=== PATIENT | male | born 1960 | race Caucasian/White ===

== ENCOUNTER → 2017-07-22 | Outpatient (CLI) | payer OTHER ==
--- NOTE | 2017-07-22 10:20 | DIAGNOSTIC IMAGING REPORT ---
(BARIUM SWALLOW) ESOPHAGUS CLINICAL HISTORY: CHRONIC COUGH COMPARISON STUDY: None FLUOROSCOPY TIME: 1.2 minutes. NUMBER OF FLUOROSCOPIC IMAGES: 19 FINDINGS: The patient swallowed effervescent granules and barium without difficulty. Swallowing the AP and lateral projections reveal no evidence of aspiration. No esophageal masses or ulcerations are visualized. There is a tiny hiatal hernia. There is disordered esophageal motility. No reflux was demonstrated. IMPRESSION: 1. No esophageal masses identified 2. Disordered esophageal motility 3. No reflux was demonstrated Electronically signed by: Jose Rubin M.D. 07/22/2017 10:19 AM Dictated Date/Time: 07/22/2017 10:18 AM
== END | disposition home or self-care (01) ==
LOC: C.RAD 09:26
PROVIDERS: ATTEND Internal Medicine
DX: R05 Cough (principal); K22.4 Dyskinesia of esophagus

== ENCOUNTER 2023-06-12 10:52 | Inpatient (IN) ==
--- OUTSIDE RECORDS SUMMARY | 2023-06-12 11:13 | External Medical Summary | Summary of Care ---
Author Name Unknown Organization [facility] Address [address] [place] [address] Phone [phone] Care Team Providers Care Senior Manager Quality Assurance Name Role Phone Gerry Noonan PA-C Primary Care Provider [phone]- [phone] Reason for Visit * Reason Comments eRx-Medication Refill Encounter Details Date Type Department Care Team (Late st Contact Info) Description 04/25/2023 Refill General Internal Medicine [facility] [address] [facility] [place] [address] Gerry Noonan PA-C [facility] [place] [address] Encounter for long-term (current) use of medications*; Type 2 diabetes mellitus with hemoglobin A1c goal of less than 7.0% ([facility]); PURE HYPERCHOLESTEROLEM Allergies Active Allergy Reactions Criticality Noted Date Comments Erythromycin 12/01/1999 throat swelling documented as of this encounter (statuses as of 04/30/2023) Medications Medication Sig Dispensed Refills Start Date End Date Status Respiratory Therapy Supplies (NEBULIZER/TUBING /MOUTHPIECE) KITIndications:Mi ld persistent asthma with acute exacerbation Take Duoneb four times a day as needed for SOB. Dx: J 45.3. 2 Kit 5 8 Active OPKO HealthTouch Ultra System w/Device KitIndications:Ty pe 2 diabetes mellitus with hemoglobin A1c goal of less than 8.0% ([facility]) check fastig glucose daily Dx: 250.00 1 Kit 0 1 Active Nebulizer CompressorIndicat ions:Mild persistent asthma with acute exacerbation Take Duoneb four times a day as needed for SOB.Dx: J 45.3. 1 Each 1 1 Active Bacitracin 500 UNIT/GM External Ointment Apply topically to affected area 3 times a day . Apply to outside of nose three times per day 15 g 1 2 Active Gabapentin 100 MG Oral Capsule (Neurontin)Indica tions:Lumbar degenerative disc disease Take 1 Capsule (100 mg) by mouth in the morning and 1 Capsule (100 mg) at noon and 1 Capsule (100 mg) before bedtime. 180 Capsule 5 2 Active metFORMIN HCl 1000 MG Oral Tablet (Glucophage)Indic ations:Type 2 diabetes mellitus with hemoglobin A1c goal of less than 7.0% ([facility]) take 1 tablet by mouth twice a day (WITH MORNING AND EVENING MEAL) 180 Tablet 3 2 Active Betamethasone Dipropionate 0.05 % External Cream (Diprosone)Indica tions:Psoriasis Apply to arms and legs twice daily as needed for flares 45 g 5 2 Active Betamethasone Valerate 0.1 % External LotionIndications :Psoriasis Apply to arms and legs twice daily 60 mL 5 2 Active Fluocinonide 0.05 % External SolutionIndicatio ns:Psoriasis Apply to scalp nightly as needed for flares 60 mL 0 2 Active Saline Nasal Foxworth 0.65 % Nasal Solution (Rainelle) Administer 2 Sprays into nostril every 2 hours while awake. 30 mL 12 2 Active Losartan Potassium 100 MG Oral Tablet (Cozaar)Indicatio ns:HTN, goal below 130/80 Take 1 Tablet (100 mg) by mouth in the morning. 90 Tablet 3 2 Active Albuterol Sulfate HFA 108 (90 Base) MCG/ACT Inhalation Aerosol SolutionIndicatio ns:Mild persistent asthma without complication Inhale 2 Puffs by mouth every 4 hours as needed for Cough, Shortness of Breath or Wheezing (and prior exertion). 18 g 3 2 Active Albuterol Sulfate (2.5 MG/3ML) 0.083% Inhalation Nebulization Solution (Proventil) Inhale 1 Vial (2.5 mg) via nebulizer every 4 hours as needed for Wheezing or Shortness of Breath (and with respiratory infections). 90 mL 1 2 Active OneTouch Ultra Blue In Vitro Strip (Glucose Blood)Indications :Type 2 diabetes mellitus with hemoglobin A1c goal of less than 7.0% (HCC) check fastig glucose daily Dx: 250.00 100 Strip 0 2 Active OneTouch UltraSoft LancetsIndication s:Type 2 diabetes mellitus with hemoglobin A1c goal of less than 7.0% (HCC) check fasting glucose daily Dx: 250.00 100 Each 3 2 Active Fluticasone-Salme terol 500-50 MCG/ACT Inhalation Aerosol Powder Breath Activated (Advair Diskus) Inhale 1 Puff by mouth in the morning and 1 Puff before bedtime. 60 Each 6 2 Active Fluticasone Propionate 50 MCG/ACT Nasal Suspension Administer 1 Foxworth into nostril in the morning. 0 Active Triamcinolone Acetonide 0.1 % External Cream (Aristocort)Indic ations:Psoriasis APPLY TOPICALLY TO AFFECTED AREA 2 TIMES A DAY 454 g 0 3 Active Montelukast Sodium 10 MG Oral Tablet (Singulair)Indica tions:Mild persistent asthma without complication TAKE 1 TABLET BY MOUTH EVERY EVENING 90 Tablet 0 3 Active Omeprazole 20 MG Oral Capsule Delayed Release (PriLOSEC)Indicat ions:Gastroesopha geal reflux disease without esophagitis TAKE ONE CAPSULE BY MOUTH IN THE MORNING 90 Capsule 0 3 Active amLODIPine Besylate 5 MG Oral Tablet (Norvasc)Indicati ons:HTN, goal below 130/80 TAKE ONE TABLET BY MOUTH IN THE MORNING 90 Tablet 0 3 Active Jardiance 10 MG Oral Tablet (Empagliflozin)In dications:Type 2 diabetes mellitus with hemoglobin A1c goal of less than 7.0% (HCC) TAKE ONE TABLET BY MOUTH IN THE MORNING 30 Tablet 0 4 Active Atorvastatin Calcium 10 MG Oral Tablet (Lipitor)Indicati ons:Type 2 diabetes mellitus with hemoglobin A1c goal of less than 7.0% (HCC),Dyslipidemi a, goal LDL below 160 TAKE ONE TABLET BY MOUTH IN THE MORNING 30 Tablet 0 4 Active Empagliflozin 10 MG Oral Tablet (Jardiance)Indica tions:Type 2 diabetes mellitus with hemoglobin A1c goal of less than 7.0% (HCC) Take 1 Tablet (10 mg) by mouth in the morning. 30 Tablet 11 2 04/27/19 24 Discontinued Atorvastatin Calcium 10 MG Oral Tablet (Lipitor)Indicati ons:Type 2 diabetes mellitus with hemoglobin A1c goal of less than 7.0% (HCC),Dyslipidemi a, goal LDL below 160 Take 1 Tablet (10 mg) by mouth in the morning. 90 Tablet 3 2 04/27/19 24 Discontinued documented as of this encounter (statuses as of 04/30/2023) Active Problems Problem Noted Date Diagnosed Date Thoracic aortic aneurysm without rupture 022 Psoriasis 03/24/2021 Diabetic sensorimotor polyneuropathy 10/17/2019 Gastroesophageal reflux disease without esophagi tis 06/16/2018 Mixed rhinitis 04/26/2018 Deviated nasal septum 04/26/2018 Mild persistent asthma without complication 10/03 Pulmonary nodule 10/12/2017 Type 2 diabetes mellitus wit h hemoglobin A1c goal of less than 7.0% 08/01/2012 Overview: ICD-10 update of inactive term HTN, goal below 130/80 07/20/2012 BMI 35-39 ISOLATED (SEE ACTUAL BMI) 09/16/2009 Overview: Per Obesity Protocol, #19 PURE HYPERCHOLESTEROLEM Overview: Per Lipid Taxonomy. Smokeless tobacco use Hemorrhoids documented as of this encounter (statuses as of 04/30/2023) Resolved Problems Problem Noted Date Diagnosed Date Resolved Date Enlarged thoracic aorta 09/27/201810/03 Gastroesophageal reflux dise ase with esophagitis 04/26/2018 02/07/2019 Hoarseness 04/26/2018 03/24/2021 Dyslipidemia, goal LDL below 160 05/12/2011 08/17/2017 Dyslipidemia, goal to be determined 03/14/2009 07/20/2012 Overview: Per Lipid Taxonomy. GENERAL OSTEOARTHROSIS 12/28/200207/20 BENIGN HYPERTENSION 07/21/19 13 documented as of this encounter (statuses as of 04/30/2023) Immunizations Name Administration Dates Next Due Pneumococcal Conjugate Vacci ne, 20-valent ([id number]) 12/15/2021 Pneumococcal Polysaccharide PPV23 (Pneumovax) 11/21/2012 Seasonal Influenza, PF, 6 M & above, IM , (FluLaval or Fluzone) 12/15/2021,03/24/2021 Seasonal Influenza, Split, I IV3, With Preserve, Inj 03/21/2013,02/17/2011,01/17/2009 TD - Tetanus/Diptheria (ADULT) 02/18/2012,1994 TDAP (age 11 and older)(Adacel) 12/28/2002 documented as of this encounter Social History Tobacco Use Types Packs/Day Years Used Date Smoking Tobacco: Never Smokeless Tobacco: Current Snuff Comments:snuff since teenage years/ no passive smoke exposures Alcohol Use Standard Drinks/Week Comments Yes 11.7 (1 standard drink = 0.6 oz pure alcohol) occ PHQ-2 Answer Date Recorded PHQ Adult Total Score 0 12/15/2021 Hunger Vital Sign Answer Date Recorded Worried About Running Out of Food in the Last Ye ar Never true 02/07/2019 Ran Out of Food in the Last Year Never true 02/07/2019 Sex and Gender Information Value Date Recorded Sex Assigned at Not on file Gender Identity Not on file Sexual Orientation Not on file Job Start Date Occupation Industry Not on file Not on file Not on file documented as of this encounter Miscellaneous Notes * Telephone Encounter - Myriam Garcia OSA - 04/30/2023 10:38 AM EST Lmom 04/30 2nd attempt * Telephone Encounter - Myriam Garcia OSA - 04/28/2023 8:32 AM EST MyG sent 04/28 * Telephone Encounter - Radha Cerda MD - 04/27/2023 3:18 PM EST Please call the patient, he will need to schedule an appointment for additional refills. * Telephone Encounter - Radha Cerda MD - 04/27/2023 3:18 PM ESTSigned Prescriptions: Disp Refills Jardiance 10 MG Oral Tablet (Empagliflozin)30 Tab*0 Sig: TAKE ONE TABLET BY MOUTH IN THE MORNING Authorizing Provider: RADHA CERDA Atorvastatin Calcium 10 MG Oral Tablet (Li*30 Tab*0 Sig: TAKE ONE TABLET BY MOUTH IN THE MORNING Authorizing Provider: RADHA CERDA * Telephone Encounter - Gerry Noonan PA-C - 04/27/2023 1:35 PM ESTPending Prescriptions: Disp Refills Jardiance 10 MG Oral Tablet (Empagliflozin)30 Tab*0 Sig: TAKE ONE TABLET BY MOUTH IN THE MORNING Atorvastatin Calcium 10 MG Oral Tablet (Li*30 Tab*0 Sig: TAKE ONE TABLET BY MOUTH IN THE MORNING * Telephone Encounter - Lilly Marquez PHARM Tech - 04/27/2023 1:27 PM ESTPending Prescriptions: Disp Refills Jardiance 10 MG Oral Tablet (Empagliflozin)30 Tab*0 Sig: TAKE ONE TABLET BY MOUTH IN THE MORNING Atorvastatin Calcium 10 MG Oral Tablet (Li*30 Tab*0 Sig: TAKE ONE TABLET BY MOUTH IN THE MORNING * Telephone Encounter - Lilly Marquez PHARM Tech - 04/27/2023 1:27 PM EST Received message from [facility] regarding patient needing appointment and labs. Placed call to patient toadvise. Left message on voicemail advising of required labs and to call back for an appointment. Thank you, Lilly Marquez, [facility] Food Safety Manager II [facility] ([facility] (formerly [facility]pharm[facility]) 04/27/2023,1:27 PM * Telephone Encounter - Fiorella Moore [facility] - 04/27/2023 7:27 AM ESTPending Prescriptions: Disp Refills Jardiance 10 MG Oral Tablet (Empagliflozin)30 Tab*0 Sig: TAKE ONE TABLET BY MOUTH IN THE MORNING Atorvastatin Calcium 10 MG Oral Tablet (Li*30 Tab*0 Sig: TAKE ONE TABLET BY MOUTH IN THE MORNING * Telephone Encounter - Fiorella Moore [facility] - 04/27/2023 7:24 AM EST Unable to authorize medication refills for pended medication(s) at this time. Part of the protocol criteria used for refill authorization was not satisfied. Per refill protocol patient should have routine exam and labs on file within past year. Reviewed AMP report, Care Gaps/Health Maintenance, medications list, and for any routine labs typically orderedfor this patient. Lab orders placed. Please contact patient to schedule office visit with PRIMARY CARE and advise of labs ordered for blood draw AND URINE specimen (patient will have to be able to void to provide sample).. Recommend patient to fast if able for labs. Patient may still have water and regular medications. Advise to obtain labs before his scheduled office visit Visit date not found. Last Visit: 12/15/2021 (in office), Visit date not found (telemedicine) Next Visit: Visit date not found After contacting patient, please forward request to Gerry Noonan PA-C. Thank You, Fiorella Moore [facility] Clinical Pharmacist [facility] ([facility]) (formerly Telepharmacy) [phone] 04/27/2023, 7:26 AM documented in this encounter Plan of Treatment Upcoming Encounters Date Type Department Care Team (Late st Contact Info) Description 09/09/2023 4:00 PM EDT Telemedicine Allergy/Immunology [facility] [place] [address] [facility] [place] [address] Marisela Sebastian PA-C [address] [facility] [place] [address] Scheduled Orders Name Type Priority Associated Diagnoses Orde r Schedule ALBUMIN / CREATININE RATIO, URINE Lab Routine Encounter for long-term (current) use of medications Expected: 04/27/2023 (Approximate), Expires: 04/27/2024 Scheduled Procedures Name Priority Associated Diagnoses Date/Ti me COLONOSCOPY FLEXIBLE PROXIMAL DIAGNOSTIC Recall History of colon polyps Health Maintenance Due Date Last Done Comments COVID-19 Vaccine (#1) 1961 HIV Screening 1976 Hepatitis C Screening 1979 Zoster Vaccines (1 of 2) 2011 Diabetic Eye Exam 10/04/2019 10/03/2018, , 01/07/2015, Additional history exists Hepatitis B (1 of 3 - Risk 3-dose series) 2021 DTaP,Tdap,and Td Vaccines (3 - Td or Tdap) 02/17/2022 02/18/2012, 12/28/2002, 04/05/1994 B-12 04/28/2022 04/28/2021, 03/12/2019 HbA1c 06/01/2022 11/29/2021, 0604/2021, 04/28/2021, Additional history exists GFR 06/02/2022 06/02/2021, 04/06, 07/05/2020, Additional history exists COLONOSCOPY-EVERY 5 YRS AGES 18-100 08/27/2022 08/27/2017, 08/27/2017, 08/08/2012, Additional history exists Albumin/Creatinine Ratio 11/29/2022 022, 07/05/2020, 03/07/2019, Additional history exists Influenza Vaccine (FLU shot) (#1) 2022 12/15/2021, 03/24/2021, 03/21/2013, Additional history exists Depression Screening 12/15/2022 12/15/2021 Diabetic Foot Exam 12/15/2022 12/15/2021, 0 11/19/2020, 10/17/2019, Additional history exists Lipid Panel 04/28/2026 04/28/2021, 0405/2020, 03/07/2019, Additional history exists Pneumococcal Vaccine: Pediatrics (0 to 5 Years) and At-Risk Patients (6 to 64 Years) Completed 12/15/2021, 11/21/2012 GARDASIL-HPV IMMUNIZATION SERIES Aged Out No longer eligible based on patient's age to complete this topic MENINGOCOCCAL (MENACTRA/MENVEO) Aged Out No longer eligible based on patient's age to complete this topic documented as of this encounter Medical Devices Not on filedocumented as of this encounter Visit Diagnoses Diagnosis Encounter for long-term (current) use of medications- Primary Encounter for long-term (current) use of other medications Type 2 diabetes mellitus with hemoglobin A1c goal of less than 7.0% (HCC) PURE HYPERCHOLESTEROLEM Other and unspecified hyperlipidemia documented in this encounter Care Teams Senior Manager Quality Assurance Relationship Specialty Start Date End Date Gerry Noonan PA-C [address] [place], [place] [address]i [place] [address] PCP - General Physician Supervisor [employer] 10/28/21 documented as of this encounter
--- OUTSIDE RECORDS SUMMARY | 2023-06-12 11:13 | External Medical Summary | Summary of Care ---
Author Name Unknown Organization [facility] Address [address] [place] [address] Phone [phone] Care Team Providers Care Mold Loft Worker Name Role Phone Parker Rubio MD Primary Care Provider [phone] Reason for Visit * Reason Comments eRx-Medication Refill Encounter Details Date Type Department Care Team (Late st Contact Info) Description 05/23/2023 Refill General Internal Medicine [facility] [address] [facility] [place] [address] Klarissa Cerda MD [address] [place] [address] Type 2 diabetes mellitus with hemoglobin A1c goal of less than 7.0% ([facility]); PURE HYPERCHOLESTEROLEM Allergies Active Allergy Reactions Criticality Noted Date Comments Erythromycin 12/01/1999 throat swelling documented as of this encounter (statuses as of 05/31/2023) Medications Medication Sig Dispensed Refills Start Date End Date Status Respiratory Therapy Supplies (NEBULIZER/TUBING /MOUTHPIECE) KITIndications:Mi ld persistent asthma with acute exacerbation Take Duoneb four times a day as needed for SOB. Dx: J 45.3. 2 Kit 5 8 Active [employer] co. System w/Device KitIndications:Ty pe 2 diabetes mellitus with hemoglobin A1c goal of less than 8.0% ([facility]) check fastig glucose daily Dx: 250.00 1 [...] hemoglobin A1c goal of less than 7.0% ([facility]) take 1 tablet by mouth twice a [...] 60 mL 0 2 Active Saline Nasal [place] 0.65 % Nasal Solution ([place]) Administer 2 Sprays into nostril every 2 [...] Propionate 50 MCG/ACT Nasal Suspension Administer 1 [place] into nostril in the morning. 0 Active [...] THE MORNING 30 Tablet 0 4 Active Jardiance 10 MG Oral Tablet (Empagliflozin)In dications:Type 2 diabetes mellitus with hemoglobin A1c goal of less than 7.0% (HCC) TAKE ONE TABLET BY MOUTH IN THE MORNING 30 Tablet 0 4 05/24/19 24 Discontinued Atorvastatin Calcium 10 MG Oral Tablet (Lipitor)Indicati ons:Type 2 diabetes mellitus with hemoglobin A1c goal of less than 7.0% (HCC),Dyslipidemi a, goal LDL below 160 TAKE ONE TABLET BY MOUTH IN THE MORNING 30 Tablet 0 4 05/24/19 24 Discontinued documented as of this encounter (statuses as of 05/31/2023) Active Problems Problem Noted Date Diagnosed Date [...] as of this encounter (statuses as of 05/31/2023) Resolved Problems Problem Noted Date Diagnosed Date Resolved Date Enlarged thoracic aorta 09/27/201810/03 Gastroesophageal reflux dise ase with esophagitis 04/26/2018 02/07/2019 Hoarseness 04/26/2018 03/24/2021 Dyslipidemia, goal LDL below 160 05/12/2011 08/17/2017 Dyslipidemia, goal to be determined 03/14/2009 07/20/2012 Overview: Per Lipid Taxonomy. GENERAL OSTEOARTHROSIS 12/28/200207/20 BENIGN HYPERTENSION 07/21/19 13 documented as of this encounter (statuses as of 05/31/2023) Immunizations Name Administration Dates Next Due Pneumococcal Conjugate Vacci ne, 20-valent ([id number]) 12/15/2021 Pneumococcal Polysaccharide PPV23 (Pneumovax) 11/21/2012 Seasonal [...] encounter Miscellaneous Notes * Telephone Encounter - Ernie Stewart OSA - 05/31/2023 10:32 AM EST Pt scheduled with new provider Dr. Rubio * Telephone Encounter - Ernie Stewart OSA - 05/26/2023 11:48 AM EST MyG sent 05/26 * Telephone Encounter - Klarissa Cerda MD - 05/24/2023 1:01 PM EST Please call the patient, he will need to schedule an appointment for additional refills. * Telephone Encounter - Klarissa Cerda MD - 05/24/2023 1:01 PM ESTSigned Prescriptions: Disp Refills Jardiance 10 MG Oral Tablet (Empagliflozin)30 Tab*0 Sig: TAKE ONE TABLET BY MOUTH IN THE MORNING Authorizing Provider: KLARISSA CERDA Atorvastatin Calcium 10 MG Oral Tablet (Li*30 Tab*0 Sig: TAKE ONE TABLET BY MOUTH IN THE MORNING Authorizing Provider: KLARISSA CERDA * Telephone Encounter - Gerry Noonan PA-C - 05/24/2023 12:55 PM ESTPending Prescriptions: Disp Refills Jardiance 10 MG Oral Tablet [Pharmacy Med *30 Tab*0 Sig: TAKE ONE TABLET BY MOUTH IN THE MORNING Atorvastatin Calcium 10 MG Oral Tablet [Ph*30 Tab*0 Sig: TAKE ONE TABLET BY MOUTH IN THE MORNING * Telephone Encounter - Lilly Marquez oracle consultant - 05/24/2023 12:47 PM EST Pending Prescriptions: Disp Refills Jardiance 10 MG Oral Tablet [Pharmacy Med *30 Tab*0 Sig: TAKE ONE TABLET BY MOUTH IN THE MORNING Atorvastatin Calcium 10 MG Oral Tablet [Ph*30 Tab*0 Sig: TAKE ONE TABLET BY MOUTH IN THE MORNING * Telephone Encounter - Lilly Marquez PHARM Tech - 05/24/2023 12:47 PM EST Received message from [facility] regarding patient needing appointment and labs. Placed call to patient guerita. Left message on voicemail advising of required labs and to call back for an appointment. Thank you, Lilly Marquez [facility] Coremaker Supervisor II [facility] ([facility]) (formerly Telepharmacy) 05/24/2023,12:47 PM * Telephone Encounter - Maryuri Allen [facility] - 05/24/2023 10:02 AM EST Pending Prescriptions: Disp Refills Jardiance 10 MG Oral Tablet [Pharmacy Med *30 Tab*0 Sig: TAKE ONE TABLET BY MOUTH IN THE MORNING Atorvastatin Calcium 10 MG Oral Tablet [Ph*30 Tab*0 Sig: TAKE ONE TABLET BY MOUTH IN THE MORNING * Telephone Encounter - Maryuri Allen [facility] - 05/24/2023 10:01 AM EST Did you pend patient's preferred pharmacy and medication before forwarding?yes Pharmacy[id number] [address] Pending Prescriptions: Disp Refills Jardiance 10 MG Oral Tablet (Empagliflozi*30 Tab*0 Sig: TAKE ONE TABLET BY MOUTH IN THE MORNING Atorvastatin Calcium 10 MG Oral Tablet (L*30 Tab*0 Sig: TAKE ONE TABLET BY MOUTH IN THE MORNING Last Visit: 12/15/2021 (in office), Visit date not found (telemedicine) Next Visit: Visit date not found If no future appointments scheduled, and last appointment is greater than a year ago, please schedule patient for a follow-up appointment Last date the medication was ordered: 04/27/23 Is this request for a controlled substance?No Urine Drug Screen:No results found for this or any previous visit. Patient Phone Numbers Labs: Lab Results Component Value Date/Time CREAT 0.9 06/02/2021 04:07 PM CREAT 0.7 03/07/2019 08:58 AM POTASSIUM 3.6 06/02/2021 04:07 PM POTASSIUM 4.3 03/07/2019 08:58 AM TSH 2.60 05/03/2018 05:27 PM LDLCALC 75 08/16/2017 07:55 AM LDLDIRECT 57 04/28/2021 08:16 AM LDLDIRECT 79 03/07/2019 08:58 AM LDLDIRECT 113 11/20/2013 04:42 PM ALT 20 07/05/2020 02:48 PM ALT 23 03/07/2019 08:58 AM HGBA1C 6.7 (H) 11/29/2021 09:22 AM HGBA1C 6.8 (H) 09/03/2021 12:52 PM HGBA1C 6.9 (H) 10/22/2019 09:09 AM * Telephone Encounter - Maryuri Allen RPh - 05/24/2023 9:56 AM EST Provided 0 days supply with 0 refill. Per refill protocol patient should have CMP, lipid panel, A1C, vit B12, alb/cr ratio on file within past year. Reviewed AMP report, Care Gaps/Health Maintenance,medications list, and for any routine labs typically ordered for this patient. Lab orders placed. Please contact patient to schedule office visit with PRIMARY CARE and advise of labs ordered for blood draw AND URINE specimen (patient will have to be able to void to provide sample).. Recommend patient to fast if able for labs. Patient may still have water and regular medications. Advise to obtain labs before requesting the next refill. Last Visit: 12/15/2021 (in office), Visit date not found (telemedicine) Next Visit: Visit date not found Maryuri Abdi PharmD Clinical Pharmacist [facility] ([facility]) (Formerly Telepharmacy) [phone] 05/24/2023 10:01 AM documented in this encounter Plan of Treatment Upcoming Encounters Date Type Department Care Team (Late st Contact Info) Description 06/09/2023 6:20 PM EST Office Visit [facility] [address] [place] [phone] AugustParker MD [address] [place] [address] 09/09/2023 4:00 PM EDT [facility]medicine [facility] [address] [place] [address] Marisela Sebastian PA-C [address] [place] [address] Scheduled Procedures Name Priority Associated Diagnoses Date/Ti me COLONOSCOPY FLEXIBLE PROXIMAL DIAGNOSTIC Recall History of colon polyps Health Maintenance Due Date Last Done Comments HIV Screening 1976 Hepatitis C Screening 1979 Zoster Vaccines (1 of 2) 2011 Diabetic Eye Exam 10/04/2019 10/03/2018, , 01/07/2015, Additional history exists DTaP,Tdap,and Td Vaccines (3 - Td or Tdap) 02/17/2022 02/18/2012, 12/28/2002, 04/05/1994 B-12 04/28/2022 04/28/2021, 03/12/2019 HbA1c 06/01/2022 11/29/2021, 06/0 04/2021, 04/28/2021, Additional history exists GFR 06/02/2022 06/02/2021, 04/06, 07/05/2020, Additional history exists COLONOSCOPY-EVERY 5 YRS AGES 18-100 08/27/2022 08/27/2017, 08/27/2017, 08/08/2012, Additional history exists Albumin/Creatinine Ratio 11/29/2022 022, 07/05/2020, 03/07/2019, Additional history exists COVID-19 Vaccine ( season) 2022 Influenza Vaccine (FLU shot) (#1) 2022 12/15/2021, 03/24/2021, 03/21/2013, Additional history exists Depression Screening 12/15/2022 12/15/2021 Diabetic Foot Exam 12/15/2022 12/15/2021, 0 11/19/2020, 10/17/2019, Additional history exists Lipid Panel 04/28/2026 04/28/2021, 04/0 05/2020, 03/07/2019, Additional history exists Pneumococcal Vaccine: Pediatrics (0 to 5 Years) and At-Risk Patients (6 to 64 Years) Completed 12/15/2021, 11/21/2012 GARDASIL-HPV IMMUNIZATION SERIES Aged Out No longer eligible based on patient's age to complete this topic Hepatitis B Aged Out No longer eligi ble based on patient's age to complete this topic MENINGOCOCCAL (MENACTRA/MENVEO) Aged Out No longer eligible based on patient's age to complete this topic documented as of this encounter Medical Devices Not on filedocumented as of this encounter Visit Diagnoses Diagnosis Type 2 diabetes mellitus with hemoglobin A1c goal of less than 7.0% (HCC) PURE HYPERCHOLESTEROLEM Other and unspecified hyperlipidemia documented in this encounter Care Teams Mold Loft Worker Relationship Specialty Start Date End Date August, Parker Chavez MD [address] [place] [address] PCP - General Family Medicine 05/31/23 documented as of this encounter
--- OUTSIDE RECORDS SUMMARY | 2023-06-12 11:13 | External Medical Summary | Summary of Care ---
Author Name Unknown Organization [facility] Address [address] [facility] [place] [address] Phone [phone] Care Team Providers Care Credit Collection Associate Name Role Phone Gerry Noonan PA-C Primary Care Provider [phone] Reason for Visit * Reason Comments eRx-Medication Refill Encounter Details Date Type Department Care Team (Late st Contact Info) Description 05/23/2023 Refill General Internal Medicine [facility] [address] [facility] [place] [address] Radha Cerda MD [address] [facility] [place] [address] Type 2 diabetes mellitus with hemoglobin A1c goal of less than 7.0% ([facility]); PURE HYPERCHOLESTEROLEM Allergies Active Allergy Reactions Criticality Noted Date Comments Erythromycin 12/01/1999 throat swelling documented as of this encounter (statuses as of 05/26/2023) Medications Medication Sig Dispensed Refills Start Date End Date Status Respiratory Therapy Supplies (NEBULIZER/TUBING /MOUTHPIECE) KITIndications:Mi ld persistent asthma with acute exacerbation Take Duoneb four times a day as needed for SOB. Dx: J 45.3. 2 Kit 5 8 Active Big HealthTouch Ultra System w/Device KitIndications:Ty pe 2 diabetes mellitus with hemoglobin A1c goal of less than 8.0% (HCC) check fastig glucose daily Dx: 250.00 1 [...] hemoglobin A1c goal of less than 7.0% ([facility]) take 1 tablet by mouth twice a [...] 60 mL 0 2 Active Saline Nasal [place] 0.65 % Nasal Solution ([place]) Administer 2 Sprays into nostril every 2 [...] Propionate 50 MCG/ACT Nasal Suspension Administer 1 [place] into nostril in the morning. 0 Active [...] as of this encounter (statuses as of 05/26/2023) Active Problems Problem Noted Date Diagnosed Date [...] as of this encounter (statuses as of 05/26/2023) Resolved Problems Problem Noted Date Diagnosed Date Resolved Date Enlarged thoracic aorta 09/27/201810/03 Gastroesophageal reflux dise ase with esophagitis 04/26/2018 02/07/2019 Hoarseness 04/26/2018 03/24/2021 Dyslipidemia, goal LDL below 160 05/12/2011 08/17/2017 Dyslipidemia, goal to be determined 03/14/2009 07/20/2012 Overview: Per Lipid Taxonomy. GENERAL OSTEOARTHROSIS 12/28/200207/20 BENIGN HYPERTENSION 07/21/19 13 documented as of this encounter (statuses as of 05/26/2023) Immunizations Name Administration Dates Next Due Pneumococcal Conjugate Vacci ne, 20-valent ([id number]) 12/15/2021 Pneumococcal Polysaccharide PPV23 (Pneumovax) 11/21/2012 Seasonal Influenza, PF, 6 M & above, IM , (FluLaval or Fluzone) 12/15/2021,03/24/2021 Seasonal Influenza, Split, I IV3, With Preserve, Inj 03/21/2013,02/17/2011,01/17/2009 TD - Tetanus/Diptheria (ADULT) 02/18/2012 TDAP (age 11 and older)(Adacel) 12/28/2002 documented [...] MyG sent 05/26 * Telephone Encounter - Radha Cerda MD - 05/24/2023 1:01 PM EST Please call the patient, he will need to schedule an appointment for additional refills. * Telephone Encounter - Radha Cerda MD - 05/24/2023 1:01 PM ESTSigned [...] THE MORNING * Telephone Encounter - Lilly Marquez, medical office coordinator - 05/24/2023 12:47 PM EST Pending Prescriptions: Disp Refills Jardiance 10 MG Oral Tablet [Pharmacy Med *30 Tab*0 Sig: TAKE ONE TABLET BY MOUTH IN THE MORNING Atorvastatin Calcium 10 MG Oral Tablet [Ph*30 Tab*0 Sig: TAKE ONE TABLET BY MOUTH IN THE MORNING * Telephone Encounter - Lilly Marquez, medical office coordinator - 05/24/2023 12:47 PM EST Received message from [facility] regarding patient needing appointment and labs. Placed call to patient guerita. Left message on voicemail advising of required labs and to call back for an appointment. Thank you, Lilly Mraquez [facility] Electrical Cad Designer II [facility] Services ([facility]PS) (formerly Telepharmacy) 05/24/2023,12:47 PM * Telephone Encounter - Maryuri Allen, [facility] - 05/24/2023 10:02 AM EST Pending Prescriptions: Disp Refills Jardiance 10 MG Oral Tablet [Pharmacy Med *30 Tab*0 Sig: TAKE ONE TABLET BY MOUTH IN THE MORNING Atorvastatin Calcium 10 MG Oral Tablet [Ph*30 Tab*0 Sig: TAKE ONE TABLET BY MOUTH IN THE MORNING * Telephone Encounter - Maryuri Allen, [facility] - 05/24/2023 10:01 AM EST Did you pend patient's preferred pharmacy and medication before forwarding?yes [id number] [address] [facility] Pending Prescriptions: Disp Refills Jardiance 10 MG [...] [facility]ized [facility] Pharmacy Services ([facility]PS) (Formerly Telepharmacy) [phone] 05/24/2023 10:01 AM documented in this encounter Plan of Treatment Upcoming Encounters Date Type Department Care Team (Late st Contact Info) Description 09/09/2023 4:00 PM EDT Telemedicine Allergy/Immunology Daryn Shaikh [place] [address] [facility] [place] [address] Marisela Sebastian PA-C [address] [facility] [place] [address] Scheduled Procedures Name Priority Associated Diagnoses Date/Ti [...] 03/07/2019, Additional history exists COVID-19 Vaccine ( - season) 2022 Influenza Vaccine (FLU shot) (#1) [...] hyperlipidemia documented in this encounter Care Teams Credit Collection Associate Relationship Specialty Start Date End Date Gerry Noonan PA-C [address] [place] [address] PCP - General Physician Customer Operations Specialist 01/30/21 documented as of this encounter
--- OUTSIDE RECORDS SUMMARY | 2023-06-12 11:13 | External Medical Summary | Summary of Care ---
Author Name Unknown Organization [facility] Address [address] [place] [address] Phone [phone] Care Team Providers Care Storyboard Artist Name Role Phone AugustParker MD Primary Care Provider [phone] Reason for Visit * Reason Onset Date Comments Appointment 06/10/2023 Colonoscopy Encounter Details Date Type Department Care Team (Late st Contact Info) Description 06/10/2023 Telephone [facility] [address] [place] [address] AugustParker MD [address] [place] [address] Appointment (Colonoscopy) Allergies Active Allergy Reactions Criticality Noted Date Comments Erythromycin 12/01/1999 throat swelling documented as of this encounter (statuses as of 06/10/2023) Medications Medication Sig Dispensed Refills Start Date End Date Status Respiratory Therapy Supplies (NEBULIZER/TUBING/M OUTHPIECE) KITIndications:Mild persistent asthma with acute exacerbation Take Duoneb four times a day as needed for SOB. Dx: J 45.3. 2 Kit 5 10/07/2017 Active OneTouch Ultra System w/Device KitIndications:Type 2 diabetes mellitus with hemoglobin A1c goal of less than 8.0% ([facility]) check fastig glucose daily Dx: 250.00 1 Kit 0 06/24/2020 Active Nebulizer CompressorIndicatio ns:Mild persistent asthma with acute exacerbation Take Duoneb four times a day as needed for SOB.Dx: J 45.3. 1 Each 1 06/24/2020 Active Gabapentin 100 MG Oral Capsule (Neurontin)Indicati ons:Lumbar degenerative disc disease Take 1 Capsule (100 mg) by mouth in the morning and 1 Capsule (100 mg) at noon and 1 Capsule (100 mg) before bedtime. 180 Capsule 5 03/01/2022 Active metFORMIN HCl 1000 MG Oral Tablet (Glucophage)Indicat ions:Type 2 diabetes mellitus with hemoglobin A1c goal of less than 7.0% ([facility]) take 1 tablet by mouth twice a day (WITH MORNING AND EVENING MEAL) 180 Tablet 3 03/01/2022 Active Saline Nasal [place] 0.65 % Nasal Solution ([place]) Administer 2 Sprays into nostril every 2 hours while awake. 30 mL 12 03/01/2022 Active Losartan Potassium 100 MG Oral Tablet (Cozaar)Indications :HTN, goal below 130/80 Take 1 Tablet (100 mg) by mouth in the morning. 90 Tablet 3 03/01/2022 Active Albuterol Sulfate HFA 108 (90 Base) MCG/ACT Inhalation Aerosol SolutionIndications :Mild persistent asthma without complication Inhale 2 Puffs by mouth every 4 hours as needed for Cough, Shortness of Breath or Wheezing (and prior exertion). 18 g 3 03/01/2022 Active Albuterol Sulfate (2.5 MG/3ML) 0.083% Inhalation Nebulization Solution (Proventil) Inhale 1 Vial (2.5 mg) via nebulizer every 4 hours as needed for Wheezing or Shortness of Breath (and with respiratory infections). 90 mL 1 03/01/2022 Active OneTouch Ultra Blue In Vitro Strip (Glucose Blood)Indications:T ype 2 diabetes mellitus with hemoglobin A1c goal of less than 7.0% ([facility]) check fastig glucose daily Dx: 250.00 100 Strip 0 03/01/2022 Active OneTouch UltraSoft LancetsIndications: Type 2 diabetes mellitus with hemoglobin A1c goal of less than 7.0% (HCC) check fasting glucose daily Dx: 250.00 100 Each 3 03/01/2022 Active Fluticasone Propionate 50 MCG/ACT Nasal Suspension Administer 1 [place] into nostril in the morning. 0 Active Montelukast Sodium 10 MG Oral Tablet (Singulair)Indicati ons:Mild persistent asthma without complication TAKE 1 TABLET BY MOUTH EVERY EVENING 90 Tablet 0 03/19/2023 Active Omeprazole 20 MG Oral Capsule Delayed Release (PriLOSEC)Indicatio ns:Gastroesophageal reflux disease without esophagitis TAKE ONE CAPSULE BY MOUTH IN THE MORNING 90 Capsule 0 03/19/2023 Active amLODIPine Besylate 5 MG Oral Tablet (Norvasc)Indication s:HTN, goal below 130/80 TAKE ONE TABLET BY MOUTH IN THE MORNING 90 Tablet 0 03/26/2023 Active Jardiance 10 MG Oral Tablet (Empagliflozin)Fransisca cations:Type 2 diabetes mellitus with hemoglobin A1c goal of less than 7.0% (HCC) TAKE ONE TABLET BY MOUTH IN THE MORNING 30 Tablet 0 05/24/2023 Active Atorvastatin Calcium 10 MG Oral Tablet (Lipitor)Indication s:Type 2 diabetes mellitus with hemoglobin A1c goal of less than 7.0% (HCC),Dyslipidemia, goal LDL below 160 TAKE ONE TABLET BY MOUTH IN THE MORNING 30 Tablet 0 05/24/2023 Active Triamcinolone Acetonide 0.1 % External Cream (Aristocort)Indicat ions:Psoriasis APPLY TOPICALLY TO AFFECTED AREA TWICE A DAY 454 g 0 06/05/2023 Active Fluticasone-[place] rol 500-50 MCG/ACT Inhalation Aerosol Powder Breath Activated (Advair Diskus) Inhale 1 Puff by mouth in the morning and 1 Puff before bedtime. 180 Each 3 06/09/2023 Active documented as of this encounter (statuses as of 06/10/2023) Active Problems Problem Noted Date Diagnosed Date [...] as of this encounter (statuses as of 06/10/2023) Resolved Problems Problem Noted Date Diagnosed Date Resolved Date Enlarged thoracic aorta 09/27/201810/03 Gastroesophageal reflux dise ase with esophagitis 04/26/2018 02/07/2019 Hoarseness 04/26/2018 03/24/2021 Dyslipidemia, goal LDL below 160 05/12/2011 08/17/2017 Dyslipidemia, goal to be determined 03/14/2009 07/20/2012 Overview: Per Lipid Taxonomy. GENERAL OSTEOARTHROSIS 12/28/200207/20 BENIGN HYPERTENSION 07/21/19 13 documented as of this encounter (statuses as of 06/10/2023) Immunizations Name Administration Dates Next Due Pneumococcal Conjugate Vacci ne, 20-valent ([id number]) 12/15/2021 Pneumococcal Polysaccharide PPV23 (Pneumovax) 11/21/2012 Seasonal [...] encounter Miscellaneous Notes * Telephone Encounter - Naomie Emmanuel OSA - 06/10/2023 9:09 AM EST Please call patient to schedule Colonoscopy. Dx: Colon cancer screening [Z12.11] Patient prefers this be done at [facility]. 06/10/2023 documented in this encounter Plan of Treatment Upcoming Encounters Date Type Department Care Team (Late st Contact Info) Description 09/09/2023 4:00 PM EDT Telemedicine Allergy/Immunology Daryn [facility] [address] [place] [address] Marisela Sebastian PA-C [address] [facility] [place] [address] 12/15/2023 6:40 PM EDT Office Visit [facility] [address] [place] [phone] AugustParker MD [address], [place] [phone] Scheduled Procedures Name Priority Associated Diagnoses Date/Ti [...] Not on filedocumented as of this encounter Care Teams Storyboard Artist Relationship Specialty Start Date End Date August, Parker Chavez MD [address] [place] [address] PCP - General Family Medicine 05/31/23 documented as of this encounter
--- OUTSIDE RECORDS SUMMARY | 2023-06-12 11:13 | External Medical Summary | Summary of Care ---
Author Name Unknown Organization [facility] Address [address] [facility] [place] [address] Phone [phone] Care Team Providers Care Director Of User Experience Name Role Phone Parker Rubio MD Primary Care Provider [phone] Encounter Details Date Type Department Care Team (Late st Contact Info) Description 06/10/2023 Orders Only PATIENT PORTAL DO NOT DELETE THIS DEPT USED BY [place] [id number] Allergies Active Allergy Reactions Criticality Noted Date [...] hemoglobin A1c goal of less than 8.0% ([facility]) check fastig glucose daily Dx: 250.00 1 [...] A1c goal of less than 7.0% (HCC) take 1 tablet by mouth twice a day (WITH MORNING AND EVENING MEAL) 180 Tablet 3 03/01/2022 Active Saline Nasal [place] 0.65 % Nasal Solution ([place]) Administer 2 Sprays into nostril every 2 [...] Propionate 50 MCG/ACT Nasal Suspension Administer 1 [place] into nostril in the morning. 0 Active [...] Next Due Pneumococcal Conjugate Vacci ne, 20-valent ([id number]) 12/15/2021 Pneumococcal Polysaccharide PPV23 (Pneumovax) 11/21/2012 Seasonal [...] on file documented as of this encounter Plan of Treatment Upcoming Encounters Date Type Department Care Team (Late st Contact Info) Description 09/09/2023 4:00 PM EDT Telemedicine Allergy/Immunology Daryn Shaikh [place] [address] [place], [place] [address] Marisela Sebastian PA-C [address] [place], [place] [address] 12/15/2023 6:40 PM EDT [facility] [address] [facility] [address] August, Parker Chavez MD [address] [place], [place] [id number] Scheduled Procedures Name Priority Associated Diagnoses Date/Ti [...] B-12 04/28/2022 04/28/2021, 03/12/2019 HbA1c 06/01/2022 11/29/2021, 06/04/2021, 04/28/2021, Additional history exists GFR 06/02/2022 06/02/2021, [...] filedocumented as of this encounter Care Teams Director Of User Experience Relationship Specialty Start Date End Date August, Parker Chavez MD [address] [place] [address] PCP - General Family Medicine 05/31/23 documented as of this encounter
--- OUTSIDE RECORDS SUMMARY | 2023-06-12 11:13 | External Medical Summary | Summary of Care ---
Author Name Unknown Organization [facility] Address [address] [place] [address] Phone [phone] Care Team Providers Care Director Traffic And Planning Name Role Phone Stevo Harding MD Primary Care Provider [phone] Reason for Visit * Reason Comments eRx-Medication Refill Encounter Details Date Type Department Care Team (Late st Contact Info) Description 06/07/2023 Refill General Internal Medicine [facility] [address] [facility] [place] [address] Gerry Noonan PA-C [facility] [place] [address] Allergies Active Allergy Reactions Criticality Noted Date Comments Erythromycin 12/01/1999 throat swelling documented as of this encounter (statuses as of 06/09/2023) Medications Medication Sig Dispensed Refills Start Date End Date Status Respiratory Therapy Supplies (NEBULIZER/TUBING /MOUTHPIECE) KITIndications:Mi ld persistent asthma with acute exacerbation Take Duoneb four times a day as needed for SOB. Dx: J 45.3. 2 Kit 5 8 Active OneTouch Ultra System w/Device KitIndications:Ty pe 2 diabetes mellitus with hemoglobin A1c goal of less than 8.0% ([facility]) check fastig glucose daily Dx: 250.00 1 Kit 0 1 Active Nebulizer CompressorIndicat ions:Mild persistent asthma with acute exacerbation Take Duoneb four times a day as needed for SOB.Dx: J 45.3. 1 Each 1 1 Active Gabapentin 100 MG Oral Capsule (Neurontin)Indica tions:Lumbar degenerative disc disease Take 1 Capsule (100 mg) by mouth in the morning and 1 Capsule (100 mg) at noon and 1 Capsule (100 mg) before bedtime. 180 Capsule 5 2 Active metFORMIN HCl 1000 MG Oral Tablet (Glucophage)Indic ations:Type 2 diabetes mellitus with hemoglobin A1c goal of less than 7.0% ([facility]) take 1 tablet by mouth twice a day (WITH MORNING AND EVENING MEAL) 180 Tablet 3 2 Active Saline Nasal [place] 0.65 % Nasal Solution ([place]) Administer 2 Sprays into nostril every 2 [...] hemoglobin A1c goal of less than 7.0% ([facility]) check fastig glucose daily Dx: 250.00 100 Strip 0 2 Active OneTouch UltraSoft LancetsIndication s:Type 2 diabetes mellitus with hemoglobin A1c goal of less than 7.0% (HCC) check fasting glucose daily Dx: 250.00 100 Each 3 2 Active Fluticasone Propionate 50 MCG/ACT Nasal Suspension Administer 1 [place] into nostril in the morning. 0 Active [...] THE MORNING 30 Tablet 0 4 Active Triamcinolone Acetonide 0.1 % External Cream (Aristocort)Indic ations:Psoriasis APPLY TOPICALLY TO AFFECTED AREA TWICE A DAY 454 g 0 4 Active Fluticasone-Salme terol 500-50 MCG/ACT Inhalation Aerosol Powder Breath Activated (Advair Diskus) Inhale 1 Puff by mouth in the morning and 1 Puff before bedtime. 180 Each 3 4 Active Fluticasone-Salme terol 500-50 MCG/ACT Inhalation Aerosol Powder Breath Activated (Advair Diskus) Inhale 1 Puff by mouth in the morning and 1 Puff before bedtime. 60 Each 6 2 06/09/19 24 Discontinued documented as of this encounter (statuses as of 06/09/2023) Active Problems Problem Noted Date Diagnosed Date [...] as of this encounter (statuses as of 06/09/2023) Resolved Problems Problem Noted Date Diagnosed Date Resolved Date Enlarged thoracic aorta 09/27/201810/03 Gastroesophageal reflux dise ase with esophagitis 04/26/2018 02/07/2019 Hoarseness 04/26/2018 03/24/2021 Dyslipidemia, goal LDL below 160 05/12/2011 08/17/2017 Dyslipidemia, goal to be determined 03/14/2009 07/20/2012 Overview: Per Lipid Taxonomy. GENERAL OSTEOARTHROSIS 12/28/200207/20 BENIGN HYPERTENSION 07/21/19 13 documented as of this encounter (statuses as of 06/09/2023) Immunizations Name Administration Dates Next Due Pneumococcal Conjugate Vacci ne, 20-valent ([id number]) 12/15/2021 Pneumococcal Polysaccharide PPV23 (Pneumovax) 11/21/2012 Seasonal [...] encounter Miscellaneous Notes * Telephone Encounter - Nesha Tam [facility] - 06/09/2023 9:55 PM ESTSigned Prescriptions: Disp Refills Fluticasone-Salmeterol 500-50 MCG/ACT Inha*180 Ea*3 Sig: Inhale 1 Puff by mouth in the morning and 1 Puff before bedtime.Authorizing Provider: STEVO HARDING User: NESHA TAM * Telephone Encounter - Interface, [facility] - 06/09/2023 8:35 PM EST Pending Prescriptions: Disp Refills Fluticasone-Salmeterol 500-50 MCG/ACT Inha*180 Ea*0 Sig: Inhale 1 Puff by mouth in the morning and 1 Puff before bedtime. * Telephone Encounter - Vilma Vuong [facility] - 06/09/2023 10:30 AM EST Ov 06/08 documented in this encounter Plan of Treatment Upcoming Encounters Date Type Department Care Team (Late st Contact Info) Description 09/09/2023 4:00 PM EDT Telemedicine Allergy/Immunology Daryn Shaikh [place] [address] [place] [address] Marisela Sebastian PA-C [address] [place] [address] 12/15/2023 6:40 PM EDT Office Visit [facility] [address] [place] [id number] August, Stevo Chavez MD [address] [place] [address] Scheduled Procedures Name Priority Associated Diagnoses Date/Ti [...] as of this encounter Care Teams Director Traffic And Planning Relationship Specialty Start Date End Date August, Stevo Chavez MD [address] [place] [address] PCP - General Family Medicine 05/31/23 documented as of this encounter
--- OUTSIDE RECORDS SUMMARY | 2023-06-12 11:13 | External Medical Summary | Summary of Care ---
Author Name Unknown Organization [facility] Address [address] [facility] [place] [address] Phone [phone] Care Team Providers Care Marine Farmer Name Role Phone Stevo Harding MD Primary Care Provider [phone] Reason for Visit * Reason Comments eRx-Medication Refill Encounter Details Date Type Department Care Team (Late st Contact Info) Description 06/04/2023 Refill General Internal Medicine [facility] [address] [facility] [place] [address] Gerry Noonan PA-C [facility] [place] [address] Psoriasis Allergies Active Allergy Reactions Criticality Noted Date Comments Erythromycin 12/01/1999 throat swelling documented as of this encounter (statuses as of 06/05/2023) Medications Medication Sig Dispensed Refills Start Date End Date Status Respiratory Therapy Supplies (NEBULIZER/TUBING /MOUTHPIECE) KITIndications:Mi ld persistent asthma with acute exacerbation Take Duoneb four times a day as needed for SOB. Dx: J 45.3. 2 Kit 5 8 Active OneTouch Ultra System w/Device KitIndications:Ty pe 2 diabetes mellitus with hemoglobin A1c goal of less than 8.0% ([facility]) check fastig glucose daily Dx: 250.00 1 [...] hemoglobin A1c goal of less than 7.0% ([facility]) take 1 tablet by mouth twice a [...] 60 mL 0 2 Active Saline Nasal [place] 0.65 % Nasal Solution ([place]) Administer 2 Sprays into nostril every 2 [...] Propionate 50 MCG/ACT Nasal Suspension Administer 1 [place] into nostril in the morning. 0 Active [...] A DAY 454 g 0 4 Active Triamcinolone Acetonide 0.1 % External Cream (Aristocort)Indic ations:Psoriasis APPLY TOPICALLY TO AFFECTED AREA 2 TIMES A DAY 454 g 0 3 06/05/19 24 Discontinued documented as of this encounter (statuses as of 06/05/2023) Active Problems Problem Noted Date Diagnosed Date [...] as of this encounter (statuses as of 06/05/2023) Resolved Problems Problem Noted Date Diagnosed Date Resolved Date Enlarged thoracic aorta 09/27/201810/03 Gastroesophageal reflux dise ase with esophagitis 04/26/2018 02/07/2019 Hoarseness 04/26/2018 03/24/2021 Dyslipidemia, goal LDL below 160 05/12/2011 08/17/2017 Dyslipidemia, goal to be determined 03/14/2009 07/20/2012 Overview: Per Lipid Taxonomy. GENERAL OSTEOARTHROSIS 12/28/200207/20 BENIGN HYPERTENSION 07/21/19 13 documented as of this encounter (statuses as of 06/05/2023) Immunizations Name Administration Dates Next Due Pneumococcal Conjugate Vacci ne, 20-valent ([id number]) 12/15/2021 Pneumococcal Polysaccharide PPV23 (Pneumovax) 11/21/2012 Seasonal [...] encounter Miscellaneous Notes * Telephone Encounter - Stevo Harding MD - 06/05/2023 12:05 PM ESTSigned Prescriptions: Disp Refills Triamcinolone Acetonide 0.1 % External Cre*454 g 0 Sig: APPLY TOPICALLY TO AFFECTED AREA TWICE A DAY Authorizing Provider: STEVO HARDING * Telephone Encounter - Rachna Vivar LPN - 06/05/2023 11:43 AM ESTPending Prescriptions: Disp Refills Triamcinolone Acetonide 0.1 % External Cre*454 g 0 Sig: APPLY TOPICALLY TO AFFECTED AREA TWICE A DAY * Telephone Encounter - Kenna Bess - 06/04/2023 7:51 PM ESTPending Prescriptions: Disp Refills Triamcinolone Acetonide 0.1 % External Cre*454 g 0 Sig: APPLY TOPICALLY TO AFFECTED AREA TWICE A DAY documented in this encounter Plan of Treatment Upcoming Encounters Date Type Department Care Team (Late st Contact Info) Description 06/09/2023 6:20 PM EST Office Visit [facility] [address] [place] [address] AugustStevo MD [address] [place] [address] 09/09/2023 4:00 PM EDT Telemedicine Allergy/Immunology [facility] [address] [place] [address] Marisela Sebastian PA-C [address] [place] [address] Scheduled Procedures Name Priority Associated Diagnoses Date/Ti [...] as of this encounter Visit Diagnoses Diagnosis Psoriasis Other psoriasis documented in this encounter Care Teams Marine Farmer Relationship Specialty Start Date End Date August, Stevo Chavez MD [address] [place] [address] PCP - General Family Medicine 05/31/23 documented as of this encounter
--- OUTSIDE RECORDS SUMMARY | 2023-06-12 11:13 | External Medical Summary | Summary of Care ---
Author Name Unknown Organization [facility] Address [address] [place] [address] Phone [phone] Care Team Providers Care Senior Environmental Consultant Name Role Phone Parker Rubio MD Primary Care Provider [phone] Reason for Referral * Ancillary Services (Within 10 days (routine)) - Pending Review Specialty Diagnoses / Procedures Referred By Sherley ruiz Referred To Contact Gastroenterology Diagnoses Colon cancer screening Parker Rubio MD [address] [place] [address] Referral ID Status Reason Start Date Expiration Date Visits Requested Visits Authorized [id number] Pending Review Ancillary Services Required 06/09/[phone] Question Answer Referral Priority Within 10 days (routine) Where should this appointment be scheduled? [facility] Comments ALERT: Do not order for pediatric patients (18 years or younger). Cancel off screen and order PEDS GASTROENTEROLOGY CONSULT (Type: 1 visit only-Evaluate and Treat) The following Pt. Instructions are available: - Gastro Colonoscopy Prep Instructions [[id number]] - Gastro Colonoscopy Prep Instructions (Angolan Version) [[id number]] Go to the Pt. Instructions section within the Visit Navigator to access. Colonoscopy ASGE Guidelines: Postadenoma resection: 1-2 tubular adenomas of less than 1 cm (5 yr intervals) ADDITIONAL INFORMATION 1. Is the patient on Coumadin? No 2. Is the patient on Pradaxa? No Reason for Visit * Reason Comments NEW PATIENT Est care Cough Cough ongoing since last week. Hx of asthma Encounter Details Date Type Department Care Team (Latest Contact Info) Description 06/09/2023 6:20 PM EST Office Visit [facility] [address] [place] [address] Parker Rubio MD [address], [place] [id number] Type 2 diabetes mellitus with hemoglobin A1c goal of less than 7.0% ([facility])*; PURE HYPERCHOLESTEROLEM; HTN, goal below 130/80; Diabetic sensorimotor polyneuropathy ([facility]); Mild persistent asthma without complication; Thoracic aortic aneurysm without rupture, unspecified part ([facility]); Gastroesophageal reflux disease without esophagitis; Psoriasis; Colon cancer screening; DM type 2 nursing care encounter ([facility]) Allergies Active Allergy Reactions Criticality Noted Date [...] 5 10/07/2017 Active OneTouch Ultra System w/Device KitIndications:Ty pe 2 diabetes mellitus with hemoglobin A1c goal of less than 8.0% ([facility]) check fastig glucose daily Dx: 250.00 1 Kit 0 06/24/2020 Active Nebulizer CompressorIndicat ions:Mild persistent asthma with acute exacerbation Take Duoneb four times a day as needed for SOB.Dx: J 45.3. 1 Each 1 06/24/2020 Active Gabapentin 100 MG Oral Capsule (Neurontin)Indica tions:Lumbar degenerative disc disease Take 1 Capsule (100 mg) by mouth in the morning and 1 Capsule (100 mg) at noon and 1 Capsule (100 mg) before bedtime. 180 Capsule 5 03/01/2022 Active metFORMIN HCl 1000 MG Oral Tablet (Glucophage)Indic ations:Type 2 diabetes mellitus with hemoglobin A1c goal of less than 7.0% ([facility]) take 1 tablet by mouth twice a day (WITH MORNING AND EVENING MEAL) 180 Tablet 3 03/01/2022 Active Saline Nasal [place] 0.65 % Nasal Solution (Mchenry) Administer 2 Sprays into nostril every 2 [...] 100 Strip 0 03/01/2022 Active OneTouch UltraSoft LancetsIndication s:Type 2 diabetes mellitus with hemoglobin A1c goal of less than 7.0% (HCC) check fasting glucose daily Dx: 250.00 100 Each 3 03/01/2022 Active Fluticasone-Salme terol 500-50 MCG/ACT Inhalation Aerosol Powder Breath Activated (Advair Diskus) Inhale 1 Puff by mouth in the morning and 1 Puff before bedtime. 60 Each 6 03/05/2022 Active Fluticasone Propionate 50 MCG/ACT Nasal Suspension Administer 1 [place] into nostril in the morning. 0 Active [...] 03/26/2023 Active Jardiance 10 MG Oral Tablet (Empagliflozin)In [...] A DAY 454 g 0 06/05/2023 Active Bacitracin 500 UNIT/GM External Ointment Apply topically to affected area 3 times a day . Apply to outside of nose three times per day 15 g 1 05/14/2021 4 Discontinue d(Medicatio n List Clean Up) Betamethasone Dipropionate 0.05 % External Cream (Diprosone)Indica tions:Psoriasis Apply to arms and legs twice daily as needed for flares 45 g 5 03/01/2022 4 Discontinue d(Medicatio n List Clean Up) Betamethasone Valerate 0.1 % External LotionIndications :Psoriasis Apply to arms and legs twice daily 60 mL 5 03/01/2022 4 Discontinue d(Medicatio n List Clean Up) Fluocinonide 0.05 % External SolutionIndicatio ns:Psoriasis Apply to scalp nightly as needed for flares 60 mL 0 03/01/2022 4 Discontinue d(Medicatio n List Clean Up) documented as of this encounter (statuses as [...] Next Due Pneumococcal Conjugate Vacci ne, 20-valent ([id number]) 12/15/2021 Pneumococcal Polysaccharide PPV23 (Pneumovax) 11/21/2012 Seasonal Influenza, PF, 6 M & above, IM , (FluLaval or Fluzone) 12/15/2021,03/24/2021 Seasonal Influenza, Split, I IV3, With Preserve, Inj 03/21/2013,02/17/2011,01/17/2009 TD - Tetanus/Diptheria (ADULT) 02/18/2012 TDAP (age 11 and older)(Adacel) 12/28/2002 documented as of this encounter Social History Tobacco Use Types Packs/Day Years Used Date Smoking Tobacco: Never Smokeless Tobacco: Current Snuff Tobacco Cessation:Ready to Q uit: Not Asked; Counseling Given: Not Answered Comments:snuff since teenage years/ no passive smoke [...] on file documented as of this encounter Last Filed Vital Signs Vital Sign Reading Time Taken Comments Blood Pressure 142/86 06/09/2023 6:01 PM EST Pulse 83 06/09/2023 6:01 PM EST Temperature 36.3 C (97.3 F) 06/09/2023 6:01 PM ES T Respiratory Rate 16 06/09/2023 6:01 PM EST Oxygen Saturation 96% 06/09/2023 6:01 PM EST Inhaled Oxygen Concentration - - Weight 109.5 kg (241 lb 4.8 oz) 06/09/2023 6:01 PM EST Height 182.9 cm (6') 06/09/2023 6:01 PM EST Body Mass Index 32.73 06/09/2023 6:01 PM EST documented in this encounter Patient Instructions * Patient Instructions* Susi Barger CCMA - 06/09/2023 7:02 PM EST Images from the original note were not included. Diabetic Retinopathy: Evaluating Your Eyes Diabetic retinopathy is a condition that happens when diabetes damages blood vessels in the rear ofthe eye. It can lead to vision loss. To help catch it early, have a complete dilated eye exam at least once a year. During the exam, the eye healthcare provider will review your medical history, examine your eyes, and check your vision. Women who are and have pre-existing type 1 or type 2 diabetes have an increased risk of retinopathy. Women with diabetes should have an eye exam before or in the first trimester. They should continue to be monitored every trimester and for 1 year after delivery, depending on the severity of the retinopathy. The retina is the light-sensitive part of the eye that allows you to see. High blood sugar can damage blood vessels of the retina and cause them to leak or bleed. This damage can lead to abnormal blood vessel growth. This condition is called diabetic retinopathy. You may not have symptoms early in the disease. Later, there may be floaters, blurred vision, or poor night vision. There may also be partial or complete vision loss. Early cases of diabetic retinopathy can be treated by carefully controlling blood sugar, blood pressure, and cholesterol. Surgery or laser treatments may help restore lost vision. Laser surgery can shrink abnormal blood vessels or close ones that are leaking. Medicines injected in the eye can help decrease swelling of the retina. Home care Take all medicines, including insulin or oral diabetic medicine, exactly as prescribed. Follow the diet advised by your healthcare provider. If you have high cholesterol, follow a low-fat, low-cholesterol diet. Monitor blood sugars as advised. Try to achieve your ideal weight. If you smoke, quit smoking. Tobacco use worsens the effect of diabetes on your blood vessels. If you have high blood pressure, consider buying an automatic blood pressure machine. These are available at most pharmacies. Use this to monitor your blood pressure. Report your blood pressure readings to your healthcare provider. Exercise regularly. Follow-up care Follow up with your healthcare provider, or as advised. You must have a complete eye exam at least once a year, more often if needed. Untreated diabetic retinopathy can lead to complete loss of vision. Occupational therapists can help you adapt to any vision loss you have, including learning techniques to safely administer insulin. When to seek medical advice Call your healthcare provider right away if any of these occur. Increasing blurriness or any sudden changes in your vision Sudden flashes of light inside your eye New floaters (small dots or strings that seem to be moving across your field of vision) Eye pain, redness, or discharge from your eyelid New dark spots appearing in your field of vision Halos around lights Dimness of vision Partial or complete loss of vision Women with diabetes should have a complete eye exam before becoming , or as soon as possible when they find out they are . Retinopathy sometimes worsens during . Your eye exam Your eye healthcare provider uses an eye chart and other tools to check your vision. Then he or sheexamines your eyes for signs of disease. You are given eye drops to widen (dilate) your pupils. Youmay have one or more of the following tests: Tonometry to measure fluid pressure inside the eye. Slit lamp exam to allow the healthcare provider to view the structures of your eye. Ultrasound to create an image of the eye using sound waves. Ultrasound may be used if blood is found in the clear gel that fills the eye (vitreous). Ocular coherence tomography (OCT) to create an image of the retina using light waves. This shows ifthere is fluid leaking into certain parts of the eye. It can also measure the thickness of the retina. Fluorescein angiography This test may be done to check the health of the inside lining of the eye (retina). It also checks the tiny blood vessels (capillaries) that carry blood to the retina. During the test: Photographs are taken of the retina. A dye is then injected into the bloodstream through the arm or hand. The dye travels to the capillaries in the eye. More photographs are taken of the retina. The dye causes the capillaries to stand out on the photographs. You may feel brief nausea during the procedure. For a few hours after the test, your skin, eyes, and urine may appear yellow. Talk with your healthcare provider for more information about this test. Date Last Reviewed: 09/04/201519998709-[address] [employer] [place] [address]. All rights reserved. This information is not intended as a substitute for professional medical care. Always follow your healthcare professional's instructions. documented in this encounter Progress Notes * Susi Barger CCMA - 06/09/2023 7:02 PM EST Images from the original note were not included. The importance of having a yearly diabetic eye exam has been discussed with patient. Order and/or Referral placed along with patient instructions. Provider made aware. AMARA Thacker The importance of having a yearly diabetic eye exam has been discussed with patient. Order and/or Referral placed along with patient instructions. Provider made aware. AMARA Thacker Diabetic Retinopathy: Evaluating Your Eyes Diabetic retinopathy is a condition that happens when diabetes damages blood vessels in the rear ofthe eye. It can lead to vision loss. To help catch it early, have a complete dilated eye exam at least once a year. During the exam, the eye healthcare provider will review your medical history, examine your eyes, and check your vision. Women who are and have pre-existing type 1 or type 2 diabetes have an increased risk of retinopathy. Women with diabetes should have an eye exam before or in the first trimester. They should continue to be monitored every trimester and for 1 year after delivery, depending on the severity of the retinopathy. The retina is the light-sensitive part of the eye that allows you to see. High blood sugar can damage blood vessels of the retina and cause them to leak or bleed. This damage can lead to abnormal blood vessel growth. This condition is called diabetic retinopathy. You may not have symptoms early in the disease. Later, there may be floaters, blurred vision, or poor night vision. There may also be partial or complete vision loss. Early cases of diabetic retinopathy can be treated by carefully controlling blood sugar, blood pressure, and cholesterol. Surgery or laser treatments may help restore lost vision. Laser surgery can shrink abnormal blood vessels or close ones that are leaking. Medicines injected in the eye can help decrease swelling of the retina. Home care Take all medicines, including insulin or oral diabetic medicine, exactly as prescribed. Follow the diet advised by your healthcare provider. If you have high cholesterol, follow a low-fat, low-cholesterol diet. Monitor blood sugars as advised. Try to achieve your ideal weight. If you smoke, quit smoking. Tobacco use worsens the effect of diabetes on your blood vessels. If you have high blood pressure, consider buying an automatic blood pressure machine. These are available at most pharmacies. Use this to monitor your blood pressure. Report your blood pressure readings to your healthcare provider. Exercise regularly. Follow-up care Follow up with your healthcare provider, or as advised. You must have a complete eye exam at least once a year, more often if needed. Untreated diabetic retinopathy can lead to complete loss of vision. Occupational therapists can help you adapt to any vision loss you have, including learning techniques to safely administer insulin. When to seek medical advice Call your healthcare provider right away if any of these occur. Increasing blurriness or any sudden changes in your vision Sudden flashes of light inside your eye New floaters (small dots or strings that seem to be moving across your field of vision) Eye pain, redness, or discharge from your eyelid New dark spots appearing in your field of vision Halos around lights Dimness of vision Partial or complete loss of vision Women with diabetes should have a complete eye exam before becoming , or as soon as possible when they find out they are . Retinopathy sometimes worsens during . Your eye exam Your eye healthcare provider uses an eye chart and other tools to check your vision. Then he or sheexamines your eyes for signs of disease. You are given eye drops to widen (dilate) your pupils. Youmay have one or more of the following tests: Tonometry to measure fluid pressure inside the eye. Slit lamp exam to allow the healthcare provider to view the structures of your eye. Ultrasound to create an image of the eye using sound waves. Ultrasound may be used if blood is found in the clear gel that fills the eye (vitreous). Ocular coherence tomography (OCT) to create an image of the retina using light waves. This shows ifthere is fluid leaking into certain parts of the eye. It can also measure the thickness of the retina. Fluorescein angiography This test may be done to check the health of the inside lining of the eye (retina). It also checks the tiny blood vessels (capillaries) that carry blood to the retina. During the test: Photographs are taken of the retina. A dye is then injected into the bloodstream through the arm or hand. The dye travels to the capillaries in the eye. More photographs are taken of the retina. The dye causes the capillaries to stand out on the photographs. You may feel brief nausea during the procedure. For a few hours after the test, your skin, eyes, and urine may appear yellow. Talk with your healthcare provider for more information about this test. Date Last Reviewed: 09/04/201519997931-7993 [employer]. [address] [place] [address], [place] [address]. All rights reserved. This information is not intended as a substitute for professional medical care. Always follow your healthcare professional's instructions. * May, Parker Chavez MD - 06/09/2023 6:35 PM EST Images from the original note were not included. Assessment and Plan 1. Type 2 diabetes mellitus with hemoglobin A1c goal of less than 7.0% (HCC) Most recent A1c 6.7. Plan to repeat A1c. Continue Jardiance and metformin. Continue atorvastatin. Diabetic eye exam completed in office today. Plan to do a diabetic foot exam at next appointment. Continue gabapentin for diabetic neuropathy. - HEMOGLOBIN A1C; Future 2. PURE HYPERCHOLESTEROLEM Continue atorvastatin. Repeat lipid panel. - LIPID PANEL WITH DIRECT LDL IF TG IS HIGH; Future 3. HTN, goal below 130/80 Blood pressure elevated at 142/86 today. Continue amlodipine and losartan. Consider addition of hydrochlorothiazide or beta-ciara if blood pressure remains elevated at future appointments. CMP to monitor renal function. - COMPREHENSIVE METABOLIC PANEL; Future - CBC; Future 4. Diabetic sensorimotor polyneuropathy (HCC) Continue gabapentin. 5. Mild persistent asthma without complication Overall stable though he does have a cough over the last couple of weeks. At this point I do not believe he requires any further intervention other than ongoing use of his daily Advair, Singulair andp.r.n. albuterol. 6. Thoracic aortic aneurysm without rupture, unspecified part (HCC) Noted. Last imaged in 2020 with size of 4.3 x 4.4 cm. 7. Gastroesophageal reflux disease without esophagitis Continue omeprazole. 8. Psoriasis Continue triamcinolone. 9. Colon cancer screening Last colonoscopy in 2018 with 5 year follow up. Patient agreeable to returning for repeat colonoscopy. - COLONOSCOPY, GI REFERRAL OP 10. DM type 2 nursing care encounter (HCC) - TELEMEDICINE DIABETIC EYE Wrap-Up Follow up in 6 months. History of Present Illness The patient is a 63 year old male with past medical history of type 2 diabetes, mild persistent asthma, HTN, thoracic aortic aneurysm, GERD who presents to establish care. Patient presents to establish care with new provider. He was previously followed by internal medicine at [facility]. His provider left recently and therefore he was looking to establish new provider. He has a history of type 2 diabetes currently on metformin and Jardiance. His most recent A1c was in 2021 which was 6.7. He is due for diabetic eye exam. We will do diabetic foot exam and his next office visit. He was appropriately on a statin medication. He has received pneumococcal vaccine in thepast. He does have diabetic neuropathy. He currently takes gabapentin on an as needed basis to assist. Patient also has a history of asthma. He currently takes Advair, Singulair, p.r.n. albuterol. He has noted a cough over the last couple of weeks. Otherwise his asthma has been under reasonably good control. Has a history of GERD currently taking omeprazole. He has a history of hypertension currently taking amlodipine 5 mg daily, losartan 100 mg daily. Blood pressure in office today is slightly elevated at 142/86. Patient also has a history of psoriasis. He currently uses triamcinolone cream as needed. Patient also has a history abdominal aortic aneurism in the thoracic region. This was last imaged in 2020. It was stable at that time at 4.3 x 4.4 cm. Physical Exam Vitals: 06/09/23 1801 Temp: 36.3 C (97.3 F) Pulse: 83 Resp: 16 SpO2: 96% BP: 142/86 BMI: 32.72 Physical Exam Physical Exam Vitals reviewed. Constitutional: General: He is not in acute distress. Cardiovascular: Rate and Rhythm: Normal rate and regular rhythm. Heart sounds: No murmur heard. Pulmonary: Effort: Pulmonary effort is normal. Comments: Few scattered wheezes. No focal findings. Musculoskeletal: Cervical back: Neck supple. Lymphadenopathy: Cervical: No cervical adenopathy. Skin: General: Skin is warm and dry. Neurological: General: No focal deficit present. Mental Status: He is alert. This note has been completed in part utilizing [employer] Speech Voice Recognition Software. Due to technical limitations of the software, grammatical errors, random word insertions, prounoun errors, and incomplete sentences may occur. Any formal questions or concerns about the content, text, or information contained within the body of this dictation should be directly addressed to the provider for clarification. documented in this encounter Nursing Notes * Susi Barger CCMA - 06/09/2023 6:01 PM EST Arnoldo Cuellar is a 63 year old male who presents today for Chief Complaint Patient presents with NEW PATIENT Est care Cough Cough ongoing since last week. Hx of asthma documented in this encounter Plan of Treatment Upcoming Encounters Date Type Department Care Team (Late st Contact Info) Description 09/09/2023 4:00 PM EDT Telemedicine Allergy/Immunology Daryn Shaikh [place] [address] [place] [address] Marisela Sebastian PA-C [address] [facility] [place], [place] [address] 12/15/2023 6:40 PM EDT Office Visit [facility] [address] [place] [id number] August, Parker Chavez MD [address], [place] [id number] Scheduled Orders Name Type Priority Associated Diagnoses Orde r Schedule HEMOGLOBIN A1C Lab Routine Type 2 diabetes mellitus with hemoglobin A1c goal of less than 7.0% (HCC) Expected: 06/09/2023 (Approximate), Expires: 06/08/2024 LIPID PANEL WITH DIRECT LDL IF TG IS HIGH Lab Routine PURE HYPERCHOLESTEROLEM Expected: 06/09/2023, Expires: 06/08/2024 COMPREHENSIVE METABOLIC PANEL Lab Routine HTN, goal below 130/80 Expected: 06/09/2023 (Approximate), Expires: 06/08/2024 CBC Lab Routine HTN, goal below 130/80 Expected: 06/09/2023 (Approximate), Expires: 06/08/2024 Scheduled Procedures Name Priority Associated Diagnoses Date/Ti me COLONOSCOPY FLEXIBLE PROXIMAL DIAGNOSTIC Recall History of colon polyps Scheduled Referrals Name Type Priority Associated Diagnoses Orde r Schedule COLONOSCOPY, GI REFERRAL OP Referral Within 10 days (routine) Colon cancer screening Ordered: 06/09/2023 Health Maintenance Due Date Last Done Comments [...] hemoglobin A1c goal of less than 7.0% (HCC)- Primary PURE HYPERCHOLESTEROLEM Other and unspecified hyperlipidemia HTN, goal below 130/80 Unspecified essential hypertension Diabetic sensorimotor polyneuropathy (HCC) Type II or unspecified type diabetes mellitus with neurological manifestations, not stated as uncontrolled Mild persistent asthma without complication Unspecified asthma Thoracic aortic aneurysm without rupture, unspecified part (HCC) Gastroesophageal reflux disease without esophagitis Esophageal reflux Psoriasis Other psoriasis Colon cancer screening Special screening for malignant neoplasms, colon DM type 2 nursing care encounter (HCC) Type II or unspecified type diabetes mellitus without mention of complication, not stated as uncontrolled documented in this encounter Care Teams Senior Environmental Consultant Relationship Specialty Start Date End Date August, Parker Chavez MD [address] [place] [address] PCP - General Family Medicine 05/31/23 documented as of this encounter
--- OUTSIDE RECORDS SUMMARY | 2023-06-12 11:14 | External Medical Summary | Summary of Care ---
Author Name Unknown Organization [facility] Address [address] [facility] [place] [address] Phone [phone] Care Team Providers Care Supervisor Wet End Name Role Phone Gerry Wade PA-C Primary Care Provider +1- [phone] Reason for Visit * Reason Comments eRx-Medication Refill Encounter Details Date Type Department Care Team (Late st Contact Info) Description 03/19/2023 Refill General Internal Medicine [facility] [address] [place] [address] Gerry Wade PA-C 200 [facility] [place] [address] Mild persistent asthma without complication; Gastroesophageal reflux disease without esophagitis Allergies Active Allergy Reactions Criticality Noted Date Comments Erythromycin 12/01/1999 throat swelling documented as of this encounter (statuses as of 03/19/2023) Medications Medication Sig Dispensed Refills Start Date End Date Status Respiratory Therapy Supplies (NEBULIZER/TUBING /MOUTHPIECE) KITIndications:Mi ld persistent asthma with acute exacerbation Take Duoneb four times a day as needed for SOB. Dx: J 45.3. 2 Kit 5 8 Active OneTouch Ultra System w/Device KitIndications:Ty pe 2 diabetes mellitus with hemoglobin A1c goal of less than 8.0% ([facility]) check fastig glucose daily Dx: [...] per day 15 g 1 2 Active amLODIPine Besylate 5 MG Oral Tablet (Norvasc)Indicati ons:HTN, goal below 130/80 Take by mouth 1 Tablet in the morning. 30 Tablet 12 2 Active Gabapentin 100 MG Oral Capsule [...] for flares 60 mL 0 2 Active Empagliflozin 10 MG Oral Tablet (Jardiance)Indica tions:Type 2 diabetes mellitus with hemoglobin A1c goal of less than 7.0% (HCC) Take 1 Tablet (10 mg) by mouth in the morning. 30 Tablet 11 2 Active Saline Nasal [place] 0.65 % Nasal Solution (Between) Administer 2 Sprays into nostril every 2 hours while awake. 30 mL 12 2 Active Atorvastatin Calcium 10 MG Oral Tablet (Lipitor)Indicati ons:Type 2 diabetes mellitus with hemoglobin A1c goal of less than 7.0% (HCC),Dyslipidemi a, goal LDL below 160 Take 1 Tablet (10 mg) by mouth in the morning. 90 Tablet 3 2 Active Losartan Potassium 100 MG Oral [...] hemoglobin A1c goal of less than 7.0% ([facility]) check fastig glucose daily Dx: 250.00 100 Strip 0 2 Active OneTouch UltraSoft LancetsIndication s:Type 2 diabetes mellitus with hemoglobin A1c goal of less than 7.0% ([facility]) check fasting glucose daily Dx: 250.00 100 Each 3 2 Active Fluticasone-Salme terol 500-50 MCG/ACT Inhalation Aerosol Powder Breath Activated (Advair Diskus) Inhale 1 Puff by mouth in the morning and 1 Puff before bedtime. 60 Each 6 2 Active Fluticasone Propionate 50 MCG/ACT Nasal Suspension Administer 1 [place] into nostril in the morning. 0 Active [...] THE MORNING 90 Capsule 0 3 Active Montelukast Sodium 10 MG Oral Tablet (Singulair)Indica tions:Mild persistent asthma without complication Take 1 Tablet (10 mg) by mouth every evening. 90 Tablet 3 2 03/19/20 23 Discontinued Omeprazole 20 MG Oral Capsule Delayed Release (PriLOSEC)Indicat ions:Gastroesopha geal reflux disease without esophagitis Take 1 Capsule (20 mg) by mouth in the morning. 90 Capsule 3 2 03/19/20 23 Discontinued documented as of this encounter (statuses as of 03/19/2023) Active Problems Problem Noted Date Diagnosed Date [...] as of this encounter (statuses as of 03/19/2023) Resolved Problems Problem Noted Date Diagnosed Date Resolved Date Enlarged thoracic aorta 09/27/201810/03 Gastroesophageal reflux dise ase with esophagitis 04/26/2018 02/07/2019 Hoarseness 04/26/2018 03/24/2021 Dyslipidemia, goal LDL below 160 05/12/2011 08/17/2017 Dyslipidemia, goal to be determined 03/14/2009 07/20/2012 Overview: Per Lipid Taxonomy. GENERAL OSTEOARTHROSIS 12/28/200207/20 BENIGN HYPERTENSION 07/21/19 13 documented as of this encounter (statuses as of 03/19/2023) Immunizations Name Administration Dates Next Due Pneumococcal Conjugate Vacci ne, 20-valent ([id number]) 12/15/2021 Pneumococcal Polysaccharide PPV23 (Pneumovax) 11/21/2012 Seasonal [...] encounter Miscellaneous Notes * Telephone Encounter - Bang Salvador, [facility] - 03/19/2023 9:51 AM ESTSigned Prescriptions: Disp Refills Montelukast Sodium 10 MG Oral Tablet (Sing*90 Tab*0 Sig: TAKE 1 TABLET BY MOUTH EVERY EVENINGAuthorizing Provider: GERRY WADE User: BANG JOHN MOmeprazole 20 MG Oral Capsule Delayed Rele*90 Cap*0 Sig: TAKE ONE CAPSULE BY MOUTH IN THE MORNINGAuthorizing Provider: GERRY WADE User: BANG JOHN * Telephone Encounter - Bang Salvador [facility] - 03/19/2023 9:50 AM EST Please contact patient so that an appointment can be scheduled with his PRIMARY CARE provider. Refill authorized to hold patient over in the mean time. Last Visit: 12/15/2021 (in office), Visit date not found (telemedicine) Next Visit: Visit date not found Thank You, Bang John [facility] Clinical Pharmacist Centralized Clinical Pharmacy Services (CCPS) (formerly Telepharmacy) 03/19/2023, 9:50 AM * Telephone Encounter - Bang Salvador [facility] - 03/19/2023 9:49 AM EST Pending Prescriptions: Disp Refills Montelukast Sodium 10 MG Oral Tablet (Sin*90 Tab*0 Sig: TAKE 1 TABLET BY MOUTH EVERY EVENING Omeprazole 20 MG Oral Capsule Delayed Rel*90 Cap*0 Sig: TAKE ONE CAPSULE BY MOUTH IN THE MORNING Last Visit: 12/15/2021 (in office), Visit date not found (telemedicine) Next Visit: Visit date not found If no future appointments scheduled, and last appointment is greater than a year ago, please schedule patient for a follow-up appointment Last date the medication was ordered: 03/01/22 Pharmacy: [id number] Is this request for a controlled substance? No Urine Drug Screen:No results found for this [...] PM HGBA1C 6.9 (H) 10/22/2019 09:09 AM documented in this encounter Plan of Treatment Upcoming Encounters Date Type Department Care Team (Late st Contact Info) Description 09/09/2023 4:00 PM EDT Telemedicine Allergy/Immunology [employer] [address] [facility] [place] [address] Marsiela Sebastian PA-C [address] [facility] [place] [address] Scheduled Procedures Name Priority Associated Diagnoses Date/Ti [...] as of this encounter Visit Diagnoses Diagnosis Mild persistent asthma without complication Unspecified asthma Gastroesophageal reflux disease without esophagitis Esophageal reflux documented in this encounter Care Teams Supervisor Wet End Relationship Specialty Start Date End Date Gerry Wade PA-C [address] [facility] [place] [address] PCP - General Physician Distribution Sales Representative 01/30/21 documented as of this encounter
--- OUTSIDE RECORDS SUMMARY | 2023-06-12 11:14 | External Medical Summary | Summary of Care ---
Author Name Unknown Organization [facility] Address [address] [facility] [place] [address] Phone [phone] Care Team Providers Care Game Protector Name Role Phone Cecilio Wade PA-C Primary Care Provider +1- [phone] Reason for Visit * Reason Comments eRx-Medication Refill Encounter Details Date Type Department Care Team (Late st Contact Info) Description 03/19/2023 Refill General Internal Medicine [facility] [address] [place] [address] Cecilio Wade PA-C 200 [facility] [place] [address] Mild persistent asthma without complication; Gastroesophageal reflux [...] goal of less than 8.0% ([facility]) check fastig glucose daily Dx: 250.00 [...] 30 Tablet 11 2 Active Saline Nasal [place] 0.65 % Nasal Solution ([place]) Administer 2 Sprays into nostril every 2 [...] goal of less than 7.0% ([facility]) check fastig glucose daily Dx: 250.00 100 Strip 0 2 Active OneTouch UltraSoft LancetsIndication s:Type 2 diabetes mellitus with hemoglobin A1c goal of less than 7.0% ([facility]) check fasting glucose daily Dx: 250.00 100 Each 3 2 Active Fluticasone-Salme terol 500-50 MCG/ACT Inhalation Aerosol Powder Breath Activated (Advair Diskus) Inhale 1 Puff by mouth in the morning and 1 Puff before bedtime. 60 Each 6 2 Active Fluticasone Propionate 50 MCG/ACT Nasal Suspension Administer 1 [place] into nostril in the morning. 0 Active [...] Next Due Pneumococcal Conjugate Vacci ne, 20-valent ([id number]) 12/15/2021 Pneumococcal Polysaccharide PPV23 (Pneumovax) 11/21/2012 Seasonal [...] encounter Miscellaneous Notes * Telephone Encounter - Paz Baltazar PHARM Tech - 03/19/2023 3:51 PM EST Received message from [facility] regarding patient needing appointment. Placed call to patient to advise. Left message on voicemail to call back and schedule appointment. Thank you, Paz Baltazar Wire Steward [facility] 03/19/2023, 3:51 PM * Telephone Encounter - Cici Salvador, [facility] - 03/19/2023 9:51 AM ESTSigned Prescriptions: Disp Refills Montelukast Sodium 10 MG Oral Tablet (Sing*90 Tab*0 Sig: TAKE 1 TABLET BY MOUTH EVERY EVENINGAuthorizing Provider: CECILIO WADE User: CICI JOHN MOmeprazole 20 MG Oral Capsule Delayed Rele*90 Cap*0 Sig: TAKE ONE CAPSULE BY MOUTH IN THE MORNINGAuthorizing Provider: CECILIO WADE User: CICI JOHN * Telephone Encounter - Cici Salvador [facility] - 03/19/2023 9:50 AM EST Please contact patient so that an appointment can be scheduled with his PRIMARY CARE provider. Refill authorized to hold patient over in the mean time. Last Visit: 12/15/2021 (in office), Visit date not found (telemedicine) Next Visit: Visit date not found Thank You, Cici John [facility] Clinical Pharmacist Centralized Clinical Pharmacy Services (CCPS) (formerly Telepharmacy) 03/19/2023, 9:50 AM * Telephone Encounter - Cici Salvador [facility] - 03/19/2023 9:49 AM EST Pending Prescriptions: [...] the medication was ordered: 03/01/22 Pharmacy: [id number] [id number] [address] Is this request for a [...] Description 09/09/2023 4:00 PM EDT Telemedicine Allergy/Immunology [facility] [address] [place] [address] Marisela Sebastian PA-C 200 [facility] [address] Scheduled Procedures Name Priority Associated Diagnoses Date/Ti [...] reflux documented in this encounter Care Teams Game Protector Relationship Specialty Start Date End Date Cecilio Wade PA-C [address] [place] [address] PCP - General Physician Manufacturing Plant Controller 01/30/21 documented as of this encounter
--- OUTSIDE RECORDS SUMMARY | 2023-06-12 11:14 | External Medical Summary | Summary of Care ---
Author Name Unknown Organization [facility] Address [address] [facility] [place] [address] Phone [phone] Care Team Providers Care Boat Cleaner Name Role Phone Gerry Noonan PA-C Primary Care Provider +1- [phone] Reason for Visit * Reason Comments eRx-Medication Refill Encounter Details Date Type Department Care Team (Late st Contact Info) Description 04/25/2023 Refill General Internal Medicine [facility] 200 [facility] [place] [address] Gerry Noonan PA-C [facility] [place] [address] Encounter for long-term (current) use of medications*; Type 2 diabetes mellitus with hemoglobin A1c goal of less than 7.0% ([facility]); PURE HYPERCHOLESTEROLEM Allergies Active Allergy Reactions Criticality Noted Date Comments Erythromycin 12/01/1999 throat swelling documented as of this encounter (statuses as of 04/28/2023) Medications Medication Sig Dispensed Refills Start Date End Date Status Respiratory Therapy Supplies (NEBULIZER/TUBING /MOUTHPIECE) KITIndications:Mi ld persistent asthma with acute exacerbation Take Duoneb four times a day as needed for SOB. Dx: J 45.3. 2 Kit 5 8 Active Family Archival SolutionsTouch Ultra System w/Device KitIndications:Ty pe 2 diabetes mellitus with hemoglobin A1c goal of less than 8.0% ([facility]) check fastig glucose daily Dx: 250.00 1 [...] A1c goal of less than 7.0% ([facility]) take 1 tablet by mouth twice a [...] 60 mL 0 2 Active Saline Nasal [place] 0.65 % Nasal Solution ([place]) Administer 2 Sprays into nostril every 2 [...] Propionate 50 MCG/ACT Nasal Suspension Administer 1 [place] into nostril in the morning. 0 Active [...] as of this encounter (statuses as of 04/28/2023) Active Problems Problem Noted Date Diagnosed Date [...] as of this encounter (statuses as of 04/28/2023) Resolved Problems Problem Noted Date Diagnosed Date Resolved Date Enlarged thoracic aorta 09/27/201810/03 Gastroesophageal reflux dise ase with esophagitis 04/26/2018 02/07/2019 Hoarseness 04/26/2018 03/24/2021 Dyslipidemia, goal LDL below 160 05/12/2011 08/17/2017 Dyslipidemia, goal to be determined 03/14/2009 07/20/2012 Overview: Per Lipid Taxonomy. GENERAL OSTEOARTHROSIS 12/28/200207/20 BENIGN HYPERTENSION 07/21/19 13 documented as of this encounter (statuses as of 04/28/2023) Immunizations Name Administration Dates Next Due Pneumococcal Conjugate Vacci ne, 20-valent ([id number]) 12/15/2021 Pneumococcal Polysaccharide PPV23 (Pneumovax) 11/21/2012 Seasonal [...] MORNING * Telephone Encounter - Lilly Marquez, computer aided design technician - 04/27/2023 1:27 PM ESTPending Prescriptions: Disp Refills Jardiance 10 MG Oral Tablet (Empagliflozin)30 Tab*0 Sig: TAKE ONE TABLET BY MOUTH IN THE MORNING Atorvastatin Calcium 10 MG Oral Tablet (Li*30 Tab*0 Sig: TAKE ONE TABLET BY MOUTH IN THE MORNING * Telephone Encounter - Lilly Marquez PHARM Tech - 04/27/2023 1:27 PM EST Received message from [facility] regarding patient needing appointment and labs. Placed call to patient toadvise. Left message on voicemail advising of required labs and to call back for an appointment. Thank you, Lilly Marquez [facility] Manager Sign II Centralized Clincal Pharmacy Services (CCPS) (formerly Telepharmacy) 04/27/2023,1:27 PM * Telephone Encounter - Fiorella Moore [facility] - 04/27/2023 7:27 AM ESTPending Prescriptions: Disp Refills Jardiance 10 MG Oral Tablet (Empagliflozin)30 Tab*0 Sig: TAKE ONE TABLET BY MOUTH IN THE MORNING Atorvastatin Calcium 10 MG Oral Tablet (Li*30 Tab*0 Sig: TAKE ONE TABLET BY MOUTH IN THE MORNING * Telephone Encounter - Fiorella Moore [facility] - 04/27/2023 7:24 AM EST Unable to [...] Gerry Noonan PA-C. Thank You, Fiorella Moore [facility] Clinical Pharmacist Centralized Clinical Pharmacy Services (CCPS) (formerly Telepharmacy) [phone] 04/27/2023, 7:26 AM documented in this encounter Plan of Treatment Upcoming Encounters Date Type Department Care Team (Late st Contact Info) Description 09/09/2023 4:00 PM EDT Telemedicine Allergy/Immunology [facility] [place] 200 [facility] [place] [address] Marisela Sebastian PA-C 200 [facility] [place] [address] Scheduled Orders Name Type Priority Associated Diagnoses [...] hyperlipidemia documented in this encounter Care Teams Boat Cleaner Relationship Specialty Start Date End Date Gerry Noonan PA-C [address] [place], [place] [address] PCP - General Physician Auto Radiator Mechanic 01/30/21 documented as of this encounter
--- OUTSIDE RECORDS SUMMARY | 2023-06-12 11:14 | External Medical Summary | Summary of Care ---
Author Name Unknown Organization [facility] Address [address] [facility] [place] [address] Phone [phone] Care Team Providers Care Head Trimmer Name Role Phone Gerry Wade PA-C Primary Care Provider +1- [phone] Reason for Visit * Reason Comments eRx-Medication Refill Encounter Details Date Type Department Care Team (Late st Contact Info) Description 03/26/2023 Refill General Internal Medicine [facility] 200 [facility] [place] [address] Gerry Wade PA-C [facility] [place] [address] Routine medical exam*; HTN, goal below 130/80 Allergies Active Allergy Reactions Criticality Noted Date Comments Erythromycin 12/01/1999 throat swelling documented as of this encounter (statuses as of 04/27/2023) Medications Medication Sig Dispensed Refills Start Date End Date Status Respiratory Therapy Supplies (NEBULIZER/TUBING /MOUTHPIECE) KITIndications:Mi ld persistent asthma with acute exacerbation Take Duoneb four times a day as needed for SOB. Dx: J 45.3. 2 Kit 5 8 Active OneTouch Ultra System w/Device KitIndications:Ty pe 2 diabetes mellitus with hemoglobin A1c goal of less than 8.0% ([facility]) check fastig glucose daily Dx: [...] 30 Tablet 11 2 Active Saline Nasal [place] 0.65 % Nasal Solution ([place]) Administer 2 Sprays into nostril every 2 [...] hemoglobin A1c goal of less than 7.0% ([facility]) check fastig glucose daily Dx: 250.00 100 Strip 0 2 Active OneTouch UltraSoft LancetsIndication s:Type 2 diabetes mellitus with hemoglobin A1c goal of less than 7.0% ([facility]) check fasting glucose daily Dx: 250.00 100 Each 3 2 Active Fluticasone-Salme terol 500-50 MCG/ACT Inhalation Aerosol Powder Breath Activated (Advair Diskus) Inhale 1 Puff by mouth in the morning and 1 Puff before bedtime. 60 Each 6 2 Active Fluticasone Propionate 50 MCG/ACT Nasal Suspension Administer 1 [place] into nostril in the morning. 0 Active [...] THE MORNING 90 Tablet 0 3 Active amLODIPine Besylate 5 MG Oral Tablet (Norvasc)Indicati ons:HTN, goal below 130/80 Take by mouth 1 Tablet in the morning. 30 Tablet 12 2 03/26/20 23 Discontinued documented as of this encounter (statuses as of 04/27/2023) Active Problems Problem Noted Date Diagnosed Date [...] as of this encounter (statuses as of 04/27/2023) Resolved Problems Problem Noted Date Diagnosed Date Resolved Date Enlarged thoracic aorta 09/27/201810/03 Gastroesophageal reflux dise ase with esophagitis 04/26/2018 02/07/2019 Hoarseness 04/26/2018 03/24/2021 Dyslipidemia, goal LDL below 160 05/12/2011 08/17/2017 Dyslipidemia, goal to be determined 03/14/2009 07/20/2012 Overview: Per Lipid Taxonomy. GENERAL OSTEOARTHROSIS 12/28/200207/20 BENIGN HYPERTENSION 07/21/19 13 documented as of this encounter (statuses as of 04/27/2023) Immunizations Name Administration Dates Next Due Pneumococcal Conjugate Vacci ne, 20-valent ([id number]) 12/15/2021 Pneumococcal Polysaccharide PPV23 (Pneumovax) 11/21/2012 Seasonal [...] encounter Miscellaneous Notes * Telephone Encounter - Fiorella Moore [facility] - 04/27/2023 7:25 AM EST Patient to be contacted in 04/25 encounter Thank You, Fiorella Moore [facility] Clinical Pharmacist Centralized Clinical Pharmacy Services (CCPS) (formerly Telepharmacy) [phone] 04/27/2023, 7:26 AM * Telephone Encounter - Ninoska Dewitt [facility] - 03/26/2023 10:41 AM EST Signed Prescriptions: Disp Refills amLODIPine Besylate 5 MG Oral Tablet (Norv*90 Tab*0 Sig: TAKE ONE TABLET BY MOUTH IN THE MORNING Authorizing Provider: GERRY WADE Ordering User: NINOSKA DEWITT * Telephone Encounter - Ninoska Dewitt [facility] - 03/26/2023 10:36 AM EST Provided 90 days supply with 0 refill. Per refill protocol patient should have B12 A1C CMP lipid panel on file within past year. Reviewed AMP report, Care Gaps/Health Maintenance, medications list, and for any routine labs typically ordered for this patient. Lab orders placed. Please contact patient to schedule office visit with PRIMARY CARE and advise of labs ordered for blood draw.. Recommend patient to fast if able for labs. Patient may still have water and regular medications. Advise to obtain labs before requesting the next refill. Last Visit: 12/15/2021 (in office), Visit date not found (telemedicine) Next Visit: Visit date not found Thank you, Ninoska Dewitt, PharmD Clinical Pharmacist Centralized Clinical Pharmacy Services (CCPS) (Formerly Telepharmacy) [phone] 03/26/2023, 10:38 AM documented in this encounter Plan of Treatment Upcoming Encounters Date Type Department Care Team (Late st Contact Info) Description 09/09/2023 4:00 PM EDT Telemedicine Allergy/Immunology [facility] [place] [address] [facility] [place] [address] Marisela Sebastian PA-C 200 [facility] [place] [address] Scheduled Orders Name Type Priority Associated Diagnoses Orde r Schedule LIPID PANEL WITH DIRECT LDL IF TG IS HIGH Lab Routine Routine medical exam Expected: 03/26/2023 (Approximate), Expires: 03/26/2024 COMPREHENSIVE METABOLIC PANEL Lab Routine Routine medical exam Expected: 03/26/2023 (Approximate), Expires: 03/26/2024 VITAMIN B12 Lab Routine Routine medical exam Expected: 03/26/2023 (Approximate), Expires: 03/26/2024 HEMOGLOBIN A1C Lab Routine Routine medical exam Expected: 03/26/2023 (Approximate), Expires: 03/26/2024 Scheduled Procedures Name Priority Associated Diagnoses Date/Ti [...] as of this encounter Visit Diagnoses Diagnosis Routine medical exam- Primary Routine general medical examination at a health care facility HTN, goal below 130/80 Unspecified essential hypertension documented in this encounter Care Teams Head Trimmer Relationship Specialty Start Date End Date Gerry Wade PA-C [address] [facility] [place] [address] PCP - General Physician Metal Coater 01/30/21 documented as of this encounter
--- OUTSIDE RECORDS SUMMARY | 2023-06-12 11:14 | External Medical Summary | Summary of Care ---
Author Name Unknown Organization [facility] Address [address] [facility] [place] [address] Phone [phone] Care Team Providers Care Mechanical Maintenance Technician Name Role Phone Gerry Wade PA-C Primary Care Provider [phone]- [phone] Reason for Visit * Reason Comments eRx-Medication Refill Encounter Details Date Type Department Care Team (Late st Contact Info) Description 03/26/2023 Refill General Internal Medicine [facility] [address] [facility] [place] [address] Gerry Wade PA-C [facility] [place] [address] Routine medical exam*; HTN, goal below 130/80 [...] less than 7.0% ([facility]) take 1 tablet by mouth [...] 60 mL 0 2 Active Saline Nasal [place] 0.65 % Nasal Solution ([place]) Administer 2 Sprays into nostril every 2 [...] Propionate 50 MCG/ACT Nasal Suspension Administer 1 [place] into nostril in the morning. 0 Active [...] 30 Tablet 12 2 03/26/20 23 Discontinued Empagliflozin 10 MG Oral Tablet (Jardiance)Indica tions:Type [...] Next Due Pneumococcal Conjugate Vacci ne, 20-valent ([id number]) 12/15/2021 Pneumococcal Polysaccharide PPV23 (Pneumovax) 11/21/2012 Seasonal [...] encounter Miscellaneous Notes * Telephone Encounter - Zonia Bess - 04/28/2023 10:26 AM EST Received message from [facility] regarding patient needing appointment and labs. Patient was notified. Successfully contacted patient and provided [facility] message. * Telephone Encounter - Fiorella Moore [facility] - 04/27/2023 7:25 AM EST Patient to be contacted in 04/25 encounter Thank You, Fiorella Moore [facility] Clinical Pharmacist [facility] ([facility]) (formerly Telepharmacy) [phone] 04/27/2023, 7:26 AM * Telephone Encounter - Ninoska Dewitt [facility] - 03/26/2023 10:41 AM EST Signed Prescriptions: Disp Refills amLODIPine Besylate 5 MG Oral Tablet (Norv*90 Tab*0 Sig: TAKE ONE TABLET BY MOUTH IN THE MORNING Authorizing Provider: GERRY WADE Ordering User: NINOSKA DEWITT * Telephone Encounter - Ninoska Dewitt [facility] - 03/26/2023 10:36 AM EST Provided 90 [...] [facility] ([facility]) (Formerly Telepharmacy) [phone] 03/26/2023, 10:38 AM documented in this encounter Plan of Treatment Upcoming Encounters Date Type Department Care Team (Late st Contact Info) Description 09/09/2023 4:00 PM EDT Telemedicine Allergy/Immunology [facility] Natasha Tran [address] [place] [address] Marisela Sebastian PA-C [address] [place] [address] Scheduled Orders Name Type Priority Associated Diagnoses [...] hypertension documented in this encounter Care Teams Mechanical Maintenance Technician Relationship Specialty Start Date End Date Gerry Wade PA-C [address] [place] [address] [place] [address] PCP - General Physician Office Machines Wirer 01/30/21 documented as of this encounter
--- OUTSIDE RECORDS SUMMARY | 2023-06-12 11:14 | External Medical Summary | Summary of Care ---
Author Name Unknown Organization [facility] Address [address] [facility] [place] [address] Phone [phone] Care Team Providers Care Custom Grinder Name Role Phone Gerry Wade PA-C Primary Care Provider +1- [phone] Reason for Visit * Reason Comments eRx-Medication Refill Encounter Details Date Type Department Care Team Description 12/21/2022 Refill General Internal Medicine [facility] [address] [facility] [place] [address] Gerry Wade PA-C [address] [facility] [place] [address] Psoriasis Allergies Active Allergy Reactions Severity Noted Date Comments Erythromycin 12/01/1999 throat swelling documented as of this encounter (statuses as of 12/22/2022) Medications Medication Sig Dispensed Refills Start Date End Date Status Respiratory Therapy Supplies (NEBULIZER/TUBING /MOUTHPIECE) KITIndications:Mi ld persistent asthma with acute exacerbation Take Duoneb four times a day as needed for SOB. Dx: J 45.3. 2 Kit 5 8 Active OneTouch Ultra System w/Device KitIndications:Ty pe 2 diabetes mellitus with hemoglobin A1c goal of less than 8.0% ([facility]) check fastig glucose daily Dx: 250.00 1 [...] the morning. 30 Tablet 12 2 Active Montelukast Sodium 10 MG Oral Tablet (Singulair)Indica tions:Mild persistent asthma without complication Take 1 Tablet (10 mg) by mouth every evening. 90 Tablet 3 2 Active Omeprazole 20 MG Oral Capsule Delayed Release (PriLOSEC)Indicat ions:Gastroesopha geal reflux disease without esophagitis Take 1 Capsule (20 mg) by mouth in the morning. 90 Capsule 3 2 Active Gabapentin 100 MG Oral Capsule [...] 30 Tablet 11 2 Active Saline Nasal [place] 0.65 % Nasal Solution ([place]) Administer 2 Sprays into nostril every 2 [...] Propionate 50 MCG/ACT Nasal Suspension Administer 1 [place] into nostril in the morning. 0 Active Triamcinolone Acetonide 0.1 % External Cream (Aristocort)Indic ations:Psoriasis APPLY TOPICALLY TO AFFECTED AREA 2 TIMES A DAY 454 g 0 3 Active Triamcinolone Acetonide 0.1 % External Cream (Aristocort)Indic ations:Psoriasis Apply topically to affected area 2 times a day . To affected area. 453.6 g 5 2 12/23/19 23 Discontinued documented as of this encounter (statuses as of 12/22/2022) Active Problems Problem Noted Date Thoracic aortic aneurysm without rupture 04/28/2021 Psoriasis 03/24/2021 Diabetic sensorimotor polyneuropathy Gastroesophageal reflux disease without esophagitis 06/16/2018 Mixed rhinitis 04/26/2018 Deviated nasal septum 04/26/2018 Mild persistent asthma without complicat ion 10/12/2017 Pulmonary nodule 10/12/2017 Type 2 diabetes mellitus with hemoglobin A1c goal of less than 7.0% 08/01/2012 Overview: ICD-10 update of inactive term HTN, goal below 130/80 07/20/2012 BMI 35-39 ISOLATED (SEE ACTUAL BMI) 09/03 Overview: Per Obesity Protocol, #19 PURE HYPERCHOLESTEROLEM Overview: Per Lipid Taxonomy. Smokeless tobacco use Hemorrhoids documented as of this encounter (statuses as of 12/22/2022) Resolved Problems Problem Noted Date Resolved Date Enlarged thoracic aorta 09/27/2018 10/17/19 20 Gastroesophageal reflux disease with esophagitis 04/26/2018 02/07/2019 Hoarseness 04/26/2018 03/24/2021 Dyslipidemia, goal LDL below 160 05/12/2011 08/17/2017 Dyslipidemia, goal to be determined 03/14/2009 07/20/2012 Overview: Per Lipid Taxonomy. GENERAL OSTEOARTHROSIS 12/28/2002 3 BENIGN HYPERTENSION 07/20/2012 documented as of this encounter (statuses as of 12/22/2022) Immunizations Name Administration Dates Next Due Pneumococcal Conjugate Vacci ne, 20-valent ([id number]) 12/15/2021 Pneumococcal Polysaccharide PPV23 (Pneumovax) 11/21/2012 Seasonal Influenza, PF, 6 mo ns & Above, IM , (Flulaval) 12/15/2021,03/24/2021 Seasonal Influenza, Split, I IV3, With [...] drink = 0.6 oz pure alcohol) occ Food Insecurity Answer Date Recorded Within the past 12 months, y ou worried that your food would run out before you got money to buy more. Never true 02/07/2019 Within the past 12 months, t he food you bought just didn't last and you didn't have money to get more. Never true 02/07/2019 Sex Assigned at Date Recorded Not on file Job Start Date Occupation Industry Not on file Not on file Not on file documented as of this encounter Miscellaneous Notes * Telephone Encounter - Gerry Wade PA-C - 12/22/2022 4:31 PM EDTSigned Prescriptions: Disp Refills Triamcinolone Acetonide 0.1 % External Cre*454 g 0 Sig: APPLY TOPICALLY TO AFFECTED AREA 2 TIMES A DAY Authorizing Provider: GERRY WADE * Telephone Encounter - Angelita Ag LPN - 12/22/2022 4:15 PM EDTPending Prescriptions: Disp Refills Triamcinolone Acetonide 0.1 % External Cre*454 g 0 Sig: APPLY TOPICALLY TO AFFECTED AREA 2 TIMES A DAY * Telephone Encounter - Angelita Ag LPN - 12/22/2022 4:15 PM EDT Did you pend patient's preferred pharmacy and medication before forwarding?yes Pharmacy: [id number] Pending Prescriptions: Disp Refills Triamcinolone Acetonide 0.1 % External Cr*454 g 0 Sig: APPLY TOPICALLY TO AFFECTED AREA 2 TIMES A DAY Last Visit: 12/15/2021 (in office), Visit date not found (telemedicine) Next Visit: Visit date not found If no future appointments scheduled, and last appointment is greater than a year ago, please schedule patient for a follow-up appointment Last date the medication was ordered: 2021 Is this request for a controlled substance?No [...] 10/22/2019 09:09 AM * Telephone Encounter - Jaysonyin Taylornanette - 12/22/2022 7:01 AM EDTPending Prescriptions: Disp Refills Triamcinolone Acetonide 0.1 % External Cre*454 g 0 Sig: APPLY TOPICALLY TO AFFECTED AREA 2 TIMES A DAY documented in this encounter Plan of Treatment Upcoming Encounters Date Type Specialty Care Team Description 03/09/2023 Office Visit Allergy & Immunology Marisela Sebastian PA-C [address] [facility] [place] [address] Scheduled Procedures Name Priority Associated Diagnoses Date/Ti me COLONOSCOPY FLEXIBLE PROXIMAL DIAGNOSTIC Recall History of colon polyps Health Maintenance Due Date Last Done Comments COVID-19 Vaccine (#1) 1961 HIV Screening 1976 Hepatitis C Screening 1979 Zoster Vaccines (1 of 2) 2011 DIABETES-EYE EXAM 10/04/2019 10/03/2018, , 01/07/2015, Additional history exists [...] psoriasis documented in this encounter Care Teams Custom Grinder Relationship Specialty Start Date End Date Gerry Wade PA-C [address] [facility] [place] [address] PCP - General Physician Computer Application Developer 01/30/21 documented as of this encounter
--- OUTSIDE RECORDS SUMMARY | 2023-06-12 11:14 | External Medical Summary | Summary of Care ---
Author Name Unknown Organization [facility] Address [address] [facility] [place] [address] Phone [phone] Care Team Providers Care Options Advisor Name Role Phone Gerry Noonan PA-C Primary Care Provider [phone] Reason for Visit * Reason Comments Follow Up Encounter Details Date Type Department Care Team (Late st Contact Info) Description 03/09/2023 4:00 PM EST Telemedicine Allergy/Immunology [facility] [address] [place] [address] Marisela Sebastian PA-C [address] [place] [address] Mild persistent asthma without complication*; Seasonal allergic rhinitis due to pollen; Mixed rhinitis; Rhinitis, nonallergic; Intrinsic eczema; Rash; Pruritic dermatitis Allergies Active Allergy Reactions Criticality Noted Date Comments Erythromycin 12/01/1999 throat swelling documented as of this encounter (statuses as of 03/09/2023) Medications Medication Sig Dispensed Refills Start Date End Date Status Respiratory Therapy Supplies (NEBULIZER/TUBING/M OUTHPIECE) KITIndications:Mild persistent asthma with acute exacerbation Take Duoneb four times a day as needed for SOB. Dx: J 45.3. 2 Kit 5 10/07/2017 Active [employer] System w/Device KitIndications:Type 2 diabetes mellitus with hemoglobin A1c goal of less than 8.0% ([facility]) check fastig glucose daily Dx: 250.00 1 Kit 0 06/24/2020 Active Nebulizer CompressorIndicatio ns:Mild persistent asthma with acute exacerbation Take Duoneb four times a day as needed for SOB.Dx: J 45.3. 1 Each 1 06/24/2020 Active Bacitracin 500 UNIT/GM External Ointment Apply topically to affected area 3 times a day . Apply to outside of nose three times per day 15 g 1 05/14/2021 Active amLODIPine Besylate 5 MG Oral Tablet (Norvasc)Indication s:HTN, goal below 130/80 Take by mouth 1 Tablet in the morning. 30 Tablet 12 12/15/2021 Active Montelukast Sodium 10 MG Oral Tablet (Singulair)Indicati ons:Mild persistent asthma without complication Take 1 Tablet (10 mg) by mouth every evening. 90 Tablet 3 03/01/2022 Active Omeprazole 20 MG Oral Capsule Delayed Release (PriLOSEC)Indicatio ns:Gastroesophageal reflux disease without esophagitis Take 1 Capsule (20 mg) by mouth in the morning. 90 Capsule 3 03/01/2022 Active Gabapentin 100 MG Oral Capsule (Neurontin)Indicati [...] EVENING MEAL) 180 Tablet 3 03/01/2022 Active Betamethasone Dipropionate 0.05 % External Cream (Diprosone)Indicati ons:Psoriasis Apply to arms and legs twice daily as needed for flares 45 g 5 03/01/2022 Active Betamethasone Valerate 0.1 % External LotionIndications:P soriasis Apply to arms and legs twice daily 60 mL 5 03/01/2022 Active Fluocinonide 0.05 % External SolutionIndications :Psoriasis Apply to scalp nightly as needed for flares 60 mL 0 03/01/2022 Active Empagliflozin 10 MG Oral Tablet (Jardiance)Indicati ons:Type 2 diabetes mellitus with hemoglobin A1c goal of less than 7.0% ([facility]) Take 1 Tablet (10 mg) by mouth in the morning. 30 Tablet 11 03/01/2022 Active Saline Nasal [place] 0.65 % Nasal Solution (Mahnomen) Administer 2 Sprays into nostril every 2 hours while awake. 30 mL 12 03/01/2022 Active Atorvastatin Calcium 10 MG Oral Tablet (Lipitor)Indication s:Type 2 diabetes mellitus with hemoglobin A1c goal of less than 7.0% ([facility]),Dyslipidemia, goal LDL below 160 Take 1 Tablet (10 mg) by mouth in the morning. 90 Tablet 3 03/01/2022 Active Losartan Potassium 100 MG Oral [...] 7.0% ([facility]) check fastig glucose daily Dx: 250.00 100 Strip 0 03/01/2022 Active OneTouch UltraSoft LancetsIndications: Type 2 diabetes mellitus with hemoglobin A1c goal of less than 7.0% ([facility]) check fasting glucose daily Dx: 250.00 100 Each 3 03/01/2022 Active Fluticasone-Salmete rol 500-50 MCG/ACT Inhalation Aerosol Powder Breath Activated (Advair Diskus) Inhale 1 Puff by mouth in the morning and 1 Puff before bedtime. 60 Each 6 03/05/2022 Active Fluticasone Propionate 50 MCG/ACT Nasal Suspension Administer 1 [place] into nostril in the morning. 0 Active Triamcinolone Acetonide 0.1 % External Cream (Aristocort)Indicat ions:Psoriasis APPLY TOPICALLY TO AFFECTED AREA 2 TIMES A DAY 454 g 0 12/22/2022 Active documented as of this encounter (statuses as of 03/09/2023) Active Problems Problem Noted Date Diagnosed Date [...] as of this encounter (statuses as of 03/09/2023) Resolved Problems Problem Noted Date Diagnosed Date Resolved Date Enlarged thoracic aorta 09/27/201810/03 Gastroesophageal reflux dise ase with esophagitis 04/26/2018 02/07/2019 Hoarseness 04/26/2018 03/24/2021 Dyslipidemia, goal LDL below 160 05/12/2011 08/17/2017 Dyslipidemia, goal to be determined 03/14/2009 07/20/2012 Overview: Per Lipid Taxonomy. GENERAL OSTEOARTHROSIS 12/28/200207/20 BENIGN HYPERTENSION 07/21/19 13 documented as of this encounter (statuses as of 03/09/2023) Immunizations Name Administration Dates Next Due Pneumococcal Conjugate Vacci ne, 20-valent ([id number]) 12/15/2021 Pneumococcal Polysaccharide PPV23 (Pneumovax) 11/21/2012 SEASONAL INFLUENZA, PF, 6 M & Above, IM , (FLULAVAL or FLUZONE) 12/15/2021,03/24/2021 Seasonal Influenza, Split, I IV3, With [...] on file documented as of this encounter Patient Instructions * Patient Instructions* Marisela Sebastian PA-C - 03/09/2023 4:35 PM EST HELPFUL HINTS FOR PATIENTS WITH ATOPIC DERMATITIS 1. Bathe or shower averaging once every other day using warm water. 2. Use a gentle cleansing mositurinzing wash or bar such as Dove, Oil of Olay, Eucerin, Basis, Cetaphil, or Aveeno. 3. Pat away excess water and immediately (within 3 minutes), apply the moistuizer or the prescribedskin medication onto damp skin. This will seal in the water and make the skin less dry and itchy. 4. Apply the moisturizer everywhere on the skin which has not received the topical medication. Recommended dye-free, fragrance free moisturizers include Aquaphor Ointment, Eucerin Creme Original or Calming, Lubriderm Cream, Cetaphil Cream, or Moisturel Cream. 5. Wash all new clothes before wearing them. This removes formaldehyde and other potentially irritating chemicals which are used during production and packing. Changing to a liquid or fragrance-free,dye-free detergent may also be helpful. Add a second rinse to ensure removal of soap. 6. Wear garments which allow air to pass freely to your skin. Open weave, loose- fitting, cotton-blend clothing may be most comfortable. 7. Work and sleep in comfortable surroundings with a fairly constant temperature and humidity level. 8. Keep fingernails very short and smooth to help prevent damage due to scratching. 9. Take your prescribed antihistamines to reduce itching and scratching. documented in this encounter Progress Notes * Marisela Sebastian PA-C - 03/09/2023 4:00 PM EST Patient location: HOME. I was not in a hospital or clinic location. After connecting through [employer], patient was verified with two unique identifiers. Patient (or authorized legal bilingual call center representative) was then informed that this was a Telemedicine visit and being conducted confidentially over secure lines. Methods to assure confidentiality were taken. Patient acknowledged consent and understanding of privacy and security of the Telemedicine visit. The patient agreed to participate. SUBJECTIVE: Arnoldo is a pleasant 62 year old male presenting via telemedicine today for follow-up of his mild persistent asthma, mixed rhinitis and deviated nasal septum. Last office visit was 09/07/2022. Overall he's been doing well. He feels his asthma is under good control. However about a month ago he was at work and started to have some shortness of breath, wheezing, and coughing. He went home that night and used his nebulized albuterol and symptoms completely resolved. That was the last time he required any rescue medications. Otherwise, albuterol use is infrequent. About two years ago on October 06 he had an asthma attack and was taken to the ED, given nebulizer treatment and discharged after a few hours. He denies any previous or recent ED or UC visits for his asthma. Denies nocturnal symptoms. Denies a history of hospitalizations from an asthma standpoint. He does take Advair 500/50 mcg 1 puff twice daily, and Singulair 10 mg daily. He does rinse his mouth after using his Advair. His allergic rhinitis symptoms have been under good control since he had his sinus/septal surgery two years ago. He will occasionally take Zyrtec in the spring or fall, but only as needed. Additionally, he will occasionally use Flonase in the Spring or Fall with good response. No recent sinus infections. No recurrent URIs. He does endorse a history of eczema which he notes has recently flared up and has been bothering him over the past week. He endorses dry skin patches on bilateral lower extremities and in the flexor surfaces of his arms and on his lower back and abdomen. He has been applying cera ve moisturizer andusing triamcinolone cream with some relief but endorses ongoing pruritus. He does use gentle free and clear products in the home because of his sensitive skin. He does have a hot tub and notes his symptoms were better when he was using the hot tub on a regular basis. No history of food allergies and no changes in his diet. No history of changes to his medications. Asthma control test obtained on September 07, 2022 revealed a score of 19 which suggest moderately controlled asthma. Asthma control test obtained on March 09, 2022 revealed a score of 20 which suggest well controlled asthma. Asthma control test obtained on September 03, 2021 revealed a score of 13 which suggest moderately controlled asthma. Asthma Control Test Summary, Results are Patient Reported The overall score is: 11 suggesting: Poorly Controlled asthma for the survey taken on: 05/22/2019 3:51:37 PM. Asthma Control Test Summary, Results are Patient Reported The overall score is: 19 suggesting: Moderately Controlled asthma for the survey taken on: 01/09/2019 5:04:52 PM. Asthma Control Test Summary, Results are Patient Reported The overall score is: 17 suggesting: Moderately Controlled asthma for the survey taken on: 06/01/2018 3:01:09 PM. Asthma Control Test Summary, Results are Patient Reported The overall score is: 17 suggesting: Moderately Controlled asthma for the survey taken on: 06/01/2018 3:01:09 PM. Patient Active Problem List Diagnosis Code PURE HYPERCHOLESTEROLEM E78.5 Smokeless tobacco use Z72.0 Hemorrhoids K64.9 BMI 35-39 ISOLATED (SEE ACTUAL BMI) E66.9 HTN, goal below 130/80 I10 Type 2 diabetes mellitus with hemoglobin A1c goal of less than 7.0% ([facility]) E11.9 Mild persistent asthma without complication J45.30 Pulmonary nodule R91.1 Mixed rhinitis J31.0 Deviated nasal septum J34.2 Gastroesophageal reflux disease without esophagitis K21.9 Diabetic sensorimotor polyneuropathy (HCC) E11.42 Psoriasis L40.9 Thoracic aortic aneurysm without rupture ([facility]) I71.20 Current Outpatient Medications Medication Sig Dispense Refill Respiratory Therapy Supplies (NEBULIZER/TUBING/MOUTHPIECE) KIT Take Duoneb four times a day as needed for SOB. Dx: J 45.3. 2 Kit 5 [employer] System w/Device Kit check fastig glucose daily Dx: 250.00 1 Kit 0 Nebulizer Compressor Take Duoneb four times a day as needed for SOB.Dx: J 45.3. 1 Each 1 Bacitracin 500 UNIT/GM External Ointment Apply topically to affected area 3 times a day . Apply to outside of nose three times per day 15 g 1 amLODIPine Besylate 5 MG Oral Tablet (Norvasc) Take by mouth 1 Tablet in the morning. 30 Tablet 12 Montelukast Sodium 10 MG Oral Tablet (Singulair) Take 1 Tablet (10 mg) by mouth every evening. 90 Tablet 3 Omeprazole 20 MG Oral Capsule Delayed Release (PriLOSEC) Take 1 Capsule (20 mg) by mouth in the morning. 90 Capsule 3 Gabapentin 100 MG Oral Capsule (Neurontin) Take 1 Capsule (100 mg) by mouth in the morning and 1 Capsule (100 mg) at noon and 1 Capsule (100 mg) before bedtime. 180 Capsule 5 metFORMIN HCl 1000 MG Oral Tablet (Glucophage) take 1 tablet by mouth twice a day (WITH MORNING ANDEVENING MEAL) 180 Tablet 3 Betamethasone Dipropionate 0.05 % External Cream (Diprosone) Apply to arms and legs twice daily as needed for flares 45 g 5 Betamethasone Valerate 0.1 % External Lotion Apply to arms and legs twice daily 60 mL 5 Fluocinonide 0.05 % External Solution Apply to scalp nightly as needed for flares 60 mL 0 Empagliflozin 10 MG Oral Tablet (Jardiance) Take 1 Tablet (10 mg) by mouth in the morning. 30 Tablet 11 Saline Nasal [place] 0.65 % Nasal Solution (Mahnomen) Administer 2 Sprays into nostril every 2 hours while awake. 30 mL 12 Atorvastatin Calcium 10 MG Oral Tablet (Lipitor) Take 1 Tablet (10 mg) by mouth in the morning. 90 Tablet 3 Losartan Potassium 100 MG Oral Tablet (Cozaar) Take 1 Tablet (100 mg) by mouth in the morning. 90 Tablet 3 Albuterol Sulfate HFA 108 (90 Base) MCG/ACT Inhalation Aerosol Solution Inhale 2 Puffs by mouth every 4 hours as needed for Cough, Shortness of Breath or Wheezing (and prior exertion). 18 g 3 Albuterol Sulfate (2.5 MG/3ML) 0.083% Inhalation Nebulization Solution (Proventil) Inhale 1 Vial (2.5 mg) via nebulizer every 4 hours as needed for Wheezing or Shortness of Breath (and with respiratory infections). 90 mL 1 OneTouch Ultra Blue In Vitro Strip (Glucose Blood) check fastig glucose daily Dx: 250.00 100 Strip 0 OneTouch UltraSoft Lancets check fasting glucose daily Dx: 250.00 100 Each 3 Fluticasone-Salmeterol 500-50 MCG/ACT Inhalation Aerosol Powder Breath Activated (Advair Diskus) Inhale 1 Puff by mouth in the morning and 1 Puff before bedtime. 60 Each 6 Fluticasone Propionate 50 MCG/ACT Nasal Suspension Administer 1 [place] into nostril in the morning. Triamcinolone Acetonide 0.1 % External Cream (Aristocort) APPLY TOPICALLY TO AFFECTED AREA 2 TIMES A DAY 454 g 0 No current facility-administered medications for this visit. Review of patient's allergies indicates: Allergen Reactions Erythromycin throat swelling Environment/Activities of Daily Living: He lives in a two-story [facility] style house. Gas heat with coal burner. Room air conditioners bedroom, bathroom and living room in the summer. Basement is unfinished, damp with water problems and mold. They do use scented materials in the home. Indoor pets include 1 dog. Bedroom 2nd floor, hardwood with area rugs. Sleeps on a mattress bed. 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 PHYSICAL EXAM: No Acute Distress: Conjunctiva: Normal TM's: Clear Nose: Pale mucosa, Mild inferior turbinate edema, no polyps, no mucopus Oropharynx: Mild erythema and cobblestoning, no lesions or exudates. Neck: No significant adenopathy Lungs: Clear to A&P, mild wheezing throughout, no consolidation Cor: RRR, no murmur Skin: multiple atopic dermatitis lesions on left forearm and abdomen; no urticaria, angioedema OBJECTIVE DATA: Allergy skin testing 04/26/18 revealed significant positive reactions to tree and ragweed pollens. All other skin tests were negative in the face of adequate positive histamine controls. Spirometry 04/26/18 revealed a reduced FEV1/FVC ratio of 73%. FEV1 3.47 L, 93% of predicted. Findings consistent with mild obstructive airways disease, 9% improvement in FEV1 post beta 2 agonist bronchodilator. Post bronchodilator spirometry was normal by ATS criteria. There was a significant bronchodilator response in both FVC and FEV1.Impression: Borderline obstruction which normalizes post bronchodilator could be consistent with asthma in the appropriate clinical settingThis interpretation has been electronically signed: JOYCE HILTON 10/20/2017 01:48:27 PM Review of a CT scan chest [facility] 10/07/17 revealed no evidence for pulmonary embolus, the lungs wereclear. No pleural effusions, no pneumothorax. No mediastinal lymphadenopathy. Central airways were patent. ASSESSMENT: ICD-10-CM 1. Mild persistent asthma without complication J45.30 2. Seasonal allergic rhinitis due to pollen J30.1 3. Mixed rhinitis J31.0 4. Rhinitis, nonallergic J31.0 5. Intrinsic eczema L20.84 6. Rash R21 7. Pruritic dermatitis L30.8 PLAN: Avoidance measures regarding pollens and nonallergic triggers should be continued. His mixed rhinitis has been under good control since having his septoplasty two years ago. He will continue saline nasal rinses and Flonase two sprays in each nostril once daily as needed. He will continue Zyrtec 10 mg as needed for allergic rhinitis symptoms. If this is not enough to control symptoms he will notify the office. In regards to his mild persistent asthma, this has been under good control. He will continue with Advair 500/50 mcg 1 puff twice daily and he was instructed to rinse out his mouth after each use. He will also continue on Singulair 10 mg daily. For any cough, wheezing, or shortness of breath, he will use his albuterol on a as needed basis. Should there be any increased frequency of albuterol use or any significant flare-ups by he has had in the past, he will contact our office for further management. For his eczema, he will diligently apply CeraVe moisturizer twice daily and triamcinolone cream twice daily to affected areas. I've recommended he take zyrtec 10 mg daily for any itching. I've also recommended he avoid any highly scented soaps/detergents and use only mild, unscented and gentle products, such as Dove bar soap. He will continue to observe the environment for possible triggers. Lesslikely to be reaction to foods or medicines as he denies any changes in his diet. Also less likely to be related to his pollen allergies as pollen season is over at this point. He may be having a contact dermatitis reaction from the chlorine in the hot tub that is more delayed, however this could have also aggravated his sensitive skin and atopic dermatitis. He will try the above measures and send a message in 2-3 weeks to follow up, he may need to be evaluated in person if symptoms persist or worsen. All questions answered at today's visit. Recommend follow-up visit in 6 months, sooner as needed. Marisela Sebastian PA-C Allergy and Immunology [facility] Supervising Physician: Brock Dailey MD Type of Supervision: Direct I spent a total of 30-39 minutes (exact time 33 mins) on the date of service in preparation, delivery, and documentation of the care provided to Arnoldo Cuellar excluding any time spent in the performance of separately billed services. (This note was completed using the dictation program [employer] Direct. As such, there may be misspellings, word substitutions, or other variations that should not change the essence of the clinical content of this encounter note.If there is need for further clarification, please direct questions to the provider listed above.) documented in this encounter Plan of Treatment Scheduled Procedures Name Priority Associated Diagnoses Date/Ti [...] Additional history exists Lipid Panel 04/28/2026 04/28/2021, 040 05/2020, 03/07/2019, Additional history exists Pneumococcal Vaccine: [...] Visit Diagnoses Diagnosis Mild persistent asthma without complication- Primary Unspecified asthma Seasonal allergic rhinitis due to pollen Mixed rhinitis Chronic rhinitis Rhinitis, nonallergic Chronic rhinitis Intrinsic eczema Rash Rash and other nonspecific skin eruption Pruritic dermatitis Unspecified pruritic disorder documented in this encounter Care Teams Options Advisor Relationship Specialty Start Date End Date Gerry Noonan PA-C [address] [place] [id number] PCP - General Physician Cardiology Manager 01/30/21 documented as of this encounter
--- NOTE | 2023-06-12 11:33 | Emergency Department Note ---
Impression & Plan COVID-19 virus infection, Asthma exacerbation ED Provider Note Name: BERYL IBARRA Age: 63 Sex: Male Arrives Via: Walk-In Informant: Patient ED Provider: Christos Flaherty MD Chief Complaint: Shortness of breath Impression: As per impression above Medical Decision Makin-year-old gentleman with history of diabetes, GERD, asthma, seasonal allergies arrives for evaluation of worsening shortness of breath over the last 2 days. Patient arrives severely short of breath, diaphoretic and quite ill-appearing. He was started on an hour-long DuoNeb, IV mag, IV steroids and some IV fluids. Septic workup initiated. Laboratory workup remarkable for minimally elevated white blood cell count, moderately elevated lactic acid otherwise unremarkable. A procalcitonin is 0. I do not feel like that he is septic or septic shock but rather his severe asthma exacerbation secondary to viral illness is causing some mild lactic acidosis and dehydration. After neb and mag he is breathing a bit better but is diffusely tight lung sounds. O2 sats did start trending down a bit. Bio fire returned positive for COVID-19. Given his asthma history I think PE is unlikely and would hold off on CT PE study at this time. Hospitalist in to see and monitor/manage further. Triage/Nursing Notes reviewed by Me Differential:Reactive airway disease, pneumonia, pneumothorax, COPD, CHF, infections, cardiac ischemia, pulmonary embolism, musculoskeletal, gastrointestinal, as well as other pathologies. Vital Signs: reviewed and remarkable for hypertensive Interventions: Decadron 10 mg IV, magnesium 1 g IV, DuoNeb 1 hour neb, normal saline bolus 1 L IV, doxycycline 100 mg IV Labs:ED labs Reviewed by me and remarkable for elevated lactic acid, Pro-Casimiro 0 Imagin view chest x-ray as per my interpretation reveals no lobar infiltrate or effusion. EKG:As per my interpretation. Indication shortness of breath. Normal sinus rhythm at 88 bpm a QTc of 450. There is no ectopy nor ischemia. When compared to an EKG of October 07, 2017 there is no significant change appreciated. Cardiac/Tele Monitoring: Cardiac Monitoring: An Order was placed for continuous cardiac monitoring. The monitor shows a rate of 80 with a normal sinus rhythm. Consults: Dr Kishan Rivera Hospitalists Plan: Disposition:Hospitalization. Condition: Good History of Present Illness: 64-year-old gentleman arrives for evaluation of shortness of breath. Patient notes for the last 2 weeks soon feeling bit short of breath with periodic coughing. Over the last 2 days rapid worsening of shortness of breath. States he cannot catch his breath even at rest now. He has been unable to sleep due to the difficulty breathing. No specific position makes better or worse other than sometimes leaning a bit forward helps. Has a history of asthma this has been using his inhalers and nebulizer at home. This really has been helping the last day or so though. Does have a history of diabetes as well. Denies any specific chest pain other than feeling very tight throughout his entire chest. Denies any leg swelling or calf pain. No recent travel. No history of DVT or PE. Past Medical History: Asthma, diabetes, GERD, allergy Home Medications: Albuterol, aspirin 81 mg daily, Pepcid, loratadine, metformin, multivitamin Allergies: Erythromycin Vitals:Blood Pressure: 173/105, Pulse 89, RR 19, T 36.5C, O2 93% on RA Physical Exam: GENERAL: Patient is very uncomfortable appearing and in severe distress. Diaphoretic, RESPIRATORY: Significant dyspnea tachypnea with diffusely tight lung sounds and severe difficulty with breathing. Pursed lip leaning forward CARDIOVASCULAR: Regular rate and rhythm.No murmur appreciated. GASTROINTESTINAL: Abdomen soft, non-tender, no peritonitis. BACK: No midline tenderness, no CVA tenderness EXTREMITIES: Normal motion all extremities, no cyanosis, no edema. NEUROLOGIC: Alert and oriented. No focal neurologic deficits appreciated SKIN: No rash, no jaundice, no diaphoresis. PSYCH: Appropriate GCS: 15 ED Course: Times/Reassessments: Patient continues to have very tight lung sounds but he appears more comfortable and is not as diaphoretic. Christos Flaherty MD Past Med/Surg History Medical History Smokeless tobacco use Psoriasis GERD (gastroesophageal reflux disease) Hypercholesterolemia Deviated nasal septum Thoracic aortic aneurysm without rupture Diabetic sensorimotor polyneuropathy Hypertension Surgical History S/P tonsillectomy and adenoidectomy H/O vasectomy H/O endoscopic sinus surgery S/P rhinoplasty Family History Mother Coronary heart disease Grandmother (Paternal) Asthma Coronary heart disease Social History Smoking Status: Never smoker Tobacco Type: Smokeless Tobacco (Dip or Chew) Second Hand Exposure: No; Do You Dip or Chew Tobacco: Yes; Hx Alcohol Use: No Hx Substance Use: No Preferred Language: Danish Communication Ability: Effective Mold Maker Helper Required: No Beliefs That Will Affect Care: None marital status: Life Partner Current Living Situation: Spouse current occupational status: employed 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 Other Information That Helps Us Care for You: No Feels Safe at Home: Yes Safety Concerns: Feels Safe At This Time Assistive Devices: None Allergies Allergies Allergy/AdvReac Type Severity Reaction Status Date / Time erythromycin base AdvReac Severe THROAT Unverified 06/12/23 13:28 SWELLING Home Meds Home Medications Medication Instructions Recorded Confirmed amlodipine 5 mg tablet 5 mg PO QAM 06/12/23 06/12/23 atorvastatin 10 mg tablet 10 mg PO HS 06/12/23 06/12/23 empagliflozin 10 mg tablet 10 mg PO QAM 06/12/23 06/12/23 (Jardiance) fluticasone 500 mcg-salmeterol 50 1 inh inhalation BID 06/12/23 06/12/23 mcg/dose blistr powdr for inhalation fluticasone propionate 50 1 spray intranasal BID PRN 06/12/23 06/12/23 mcg/actuation nasal Congestion spray,suspension gabapentin 100 mg capsule 100 mg PO TID 06/12/23 06/12/23 losartan 100 mg tablet 100 mg PO QAM 06/12/23 06/12/23 metformin 1,000 mg tablet 1,000 mg PO BID 06/12/23 06/12/23 montelukast 10 mg tablet 10 mg PO HS 06/12/23 06/12/23 multivitamin 1 tab PO QAM 06/12/23 06/12/23 omeprazole 20 mg capsule,delayed 20 mg PO QAM 06/12/23 06/12/23 release triamcinolone acetonide 0.1 % 1 applic topical BID PRN FLARE 06/12/23 06/12/23 topical cream Results & Data (ED) Vital Signs Vital Signs - 24 hr 06/12/23 11:10 06/12/23 11:25 06/12/23 11:30 Temperature 36.5 C Temperature Source Temporal Artery Scan Pulse Rate 90 89 89 Respiratory Rate 19 21 Respiratory Effort / Characteristics Non-Labored Spontaneous Respiratory Depth Normal Blood Pressure 173/105 H 199/115 H Blood Pressure Mean 127 143 Pulse Oximetry 93 93 Oxygen Delivery Method Room Air Room Air Sepsis Recent Fever Within 48 Hours No Sepsis New/Unexplained Change in Mental Status No Sepsis Action Taken by Nursing No Action Required 06/12/23 12:20 06/12/23 12:30 06/12/23 13:00 Temperature Temperature Source Pulse Rate 89 89 91 H Respiratory Rate 12 15 22 Respiratory Effort / Characteristics Respiratory Depth Blood Pressure 176/97 H 167/102 H 174/100 H Blood Pressure Mean 123 123 124 Pulse Oximetry 96 93 94 Oxygen Delivery Method Room Air Room Air Sepsis Recent Fever Within 48 Hours Sepsis New/Unexplained Change in Mental Status Sepsis Action Taken by Nursing Laboratory Data 06/12/23 11:45 06/12/23 11:45 Lab Results 06/12/23 06/12/23 06/12/23 Range/Units 11:45 12:15 12:18 WBC 11.77 H (4.8-10.8) K/ul RBC 5.46 (4.70-6.10) M/uL Hgb 16.8 (14.0-18.0) g/dl Hct 45.7 (42.0-52.0) % MCV 83.7 (80.0-100.0) fL MCH 30.8 (25.0-34.0) pg MCHC 36.8 H (32.0-36.0) g/dL RDW Std Deviation 37.8 (36.4-46.3) fL RDW Coeff of Bryant 12.6 (11.5-14.5) % Plt Count 256 (130-400) K/uL MPV 10.5 (9.4-12.4) fL Immature Gran % (Auto) 0.3 % Neut % (Auto) 72.7 % Lymph % (Auto) 12.5 % Bureau % (Auto) 7.6 % Eos % (Auto) 5.7 % Baso % (Auto) 1.2 % Neut # (Auto) 8.57 H (1.40-6.50) K/uL Lymph # (Auto) 1.47 (1.20-3.40) K/uL Bureau # (Auto) 0.89 H (0.11-0.59) K/uL Eos # (Auto) 0.67 H (0.00-0.50) K/uL Baso # (Auto) 0.14 (0.00-0.20) K/uL Immature Gran # (Auto) 0.03 (0.01-0.20) K/uL VBG pH 7.35 L (7.36-7.41) VBG pCO2 44 (38-50) mmHg VBG pO2 48 mmHg VBG HCO3 24 mmol/L VBG O2 Saturation 75.2 % VBG Base Excess -1.6 mEq/L Sodium 139 (136-145) mmol/L Potassium 3.8 (3.5-5.1) mmol/L Chloride 104 (98-107) mmol/L Carbon Dioxide 26 (21-32) mmol/L Anion Gap 9 (3-11) BUN 5 L (6-23) mg/dl Creatinine 0.67 (0.6-1.4) mg/dl Est Cr Clr Drug Dosing 144.3 ml/min Est GFR ( Amer) 119.4 ml/min Est GFR (Non-Af Amer) 103.0 ml/min BUN/Creatinine Ratio 7.5 L (10-20) Glucose 136 H (70-99(Fasting)) mg/dl Lactate 2.2 H* (0.4-2.0) mmol/L Calcium 9.4 (8.6-10.3) mg/dl Magnesium 2.0 (1.7-2.4) mg/dl Total Bilirubin 0.6 (0.2-1.0) mg/dl Direct Bilirubin 0.1 (0-0.2) mg/dl AST 18 (13-39) U/L ALT 18 (7-52) U/L Alkaline Phosphatase 78 (34-104) U/L Troponin I High Sens Cancelled 16.6 Total Protein 8.0 (6.0-8.3) gm/dl Albumin 4.9 (3.4-5.0) gm/dl Procalcitonin < 0.02 (0-0.5) ng/ml Adenovirus (PCR) Not Detected (NotDetected) B. pertussis DNA (PCR) Not Detected (NotDetected) B.parapertussis DNA PCR Not Detected (NotDetected) C. pneumoniae DNA (PCR) Not Detected (NotDetected) Coronavirus OC43 (PCR) Not Detected (NotDetected) Coronavirus HKU1 (PCR) Not Detected (NotDetected) Coronavirus 229E (PCR) Not Detected (NotDetected) SARS-CoV-2 (PCR) DETECTED A (NotDetected) Coronavirus NL63 (PCR) Not Detected (NotDetected) Human Metapneumovir PCR Not Detected (NotDetected) Influenza Type A (PCR) Not Detected (NotDetected) Influenza Type B (PCR) Not Detected (NotDetected) M. pneumoniae (PCR) Not Detected (NotDetected) Parainfluenza 1 (PCR) Not Detected (NotDetected) Parainfluenza 2 (PCR) Not Detected (NotDetected) Parainfluenza 3 (PCR) Not Detected (NotDetected) Parainfluenza 4 (PCR) Not Detected (NotDetected) RSV (PCR) Not Detected (NotDetected) Entero/Rhino (PCR) Not Detected (NotDetected) Administered Medications Amlodipine Besylate (Amlodipine Besylate 5 Mg Tab) 5 mg PO QAM [facility] Stop: 07/12/23 13:59 Last Admin: 06/12/23 15:11 Dose: 5 mg Documented By: LMM Gabapentin (Gabapentin 100 Mg Cap) 100 mg PO TID [facility] Stop: 07/12/23 13:59 Last Admin: 06/12/23 15:11 Dose: 100 mg Documented By: LMM Losartan Potassium (Losartan Potassium 50 Mg Tab) 100 mg PO QAM ALDAIR Stop: 07/12/23 13:59 Last Admin: 06/12/23 15:11 Dose: 100 mg Documented By: LMM Discontinued Medications Albuterol (Albut/Ipratrop 3mg/0.5mg Neb 3 Ml Vial) 12 ml NEB ONE ONE; Protocol Stop: 06/12/23 11:31 Last Admin: 06/12/23 11:54 Dose: 12 ml Documented By: LMM Albuterol (Albuterol 0.083% Nebu Soln 3 Ml Vial) 2.5 mg NEB QIDR ALDAIR; Protocol Stop: 07/12/23 14:59 Last Admin: 06/12/23 15:25 Dose: 2.5 mg Documented By: CINDYP Dexamethasone Sodium Phosphate (DexamethasonePf 10 Mg/Ml Vial) 10 mg IV NOW ONE Stop: 06/12/23 11:31 Last Admin: 06/12/23 11:54 Dose: 10 mg Documented By: LMM Guaifenesin/Codeine Phosphate (Guaifenesin/Codeine 100mg/10mg 5ml Udc) 10 ml PO NOW STA Stop: 06/12/23 13:55 Last Admin: 06/12/23 14:21 Dose: 10 ml Documented By: LMM Hydralazine HCl (Hydralazine Hcl 20 Mg/Ml Vial) 5 mg IV NOW ONE Stop: 06/12/23 13:59 Last Admin: 06/12/23 14:23 Dose: 5 mg Documented By: LMM Magnesium Sulfate/Dextrose (Magnesium Sulfate / D5w) 1 gm in 100 mls @ 100 mls/hr IV NOW STA Stop: 06/12/23 12:29 Last Infusion: 06/12/23 13:02 Dose: Infused Documented By: Admin: 06/12/23 11:54 Dose: 100 mls/hr Documented By: LMM Sodium Chloride (Nss) 1,000 mls @ 999 mls/hr IV .Q1H1M ONE Stop: 06/12/23 13:19 Last Infusion: 06/12/23 13:44 Dose: Infused Documented By: Admin: 06/12/23 12:42 Dose: 999 mls/hr Documented By: KATHARINA Doxycycline Hyclate 100 mg/ (Dextrose) 100 mls @ 50 mls/hr IV NOW STA Stop: 06/12/23 14:48 Last Infusion: 06/12/23 16:00 Dose: Infused Documented By: Admin: 06/12/23 13:58 Dose: 50 mls/hr Documented By: LMM Imaging Data Radiologist's Impression: Chest X-Ray 06/12/23 11:31 XR chest 1V portable CLINICAL HISTORY: shob TECHNIQUE: Single frontal radiograph of the chest was obtained. Comparison: Comparison is made to chest radiograph 10/07/2017 FINDINGS: No lines and tubes are seen. Cardiomegaly is noted. The lungs are clear. No evidence of pleural effusion or pneumothorax. IMPRESSION: No acute abnormalities and in particular no radiographic evidence of pneumonia. ACT 112: Negative or not required by law. Electronically signed by: Devan Ortega M.D. 06/12/2023 12:37 PM Discharge Plan Visit Data Chief Complaint: Cough Stated Complaint: COUGH SOB ED Provider: Christos Flaherty Discharge Problem: COVID-19 virus infection, Asthma exacerbation Patient Disposition: Admitted As Inpatient Discharge Instructions Interventions: ED Discharge Assessment Last Done: 06/12/23 14:34 Discharge Problem: Asthma exacerbation Qualifiers: Asthma severity: severe Asthma persistence: persistent Qualified Code(s): J 45.51 - Severe persistent asthma with (acute) exacerbation
[2023-06-12] MEDS: MAGNESIUM SULFATE / D5W 1 GM/100 ML BAG IV STA (11:54)
[2023-06-12] MEDS: ALBUT/IPRATROP 3MG/0.5MG NEB 3 ML VIAL NEB ONE (11:54)
[2023-06-12] MEDS: dexAMETHasone**PF** 10 MG/ML VIAL IV ONE (11:54)
[2023-06-12 12:10] LABS: Basophils # (auto) 0.14 K/uL (0.00-0.20); Basophils % (auto) 1.2 %; Eosinophils # (auto) 0.67 K/uL (0.00-0.50); Eosinophils % (auto) 5.7 %; Hematocrit (blood only) 45.7 % (42.0-52.0); Hemoglobin 16.8 g/dl (14.0-18.0); Immature Granulocytes # (auto) 0.03 K/uL (0.01-0.20); Immature Granulocytes % (auto) 0.3 %; Lymphocytes # (auto) 1.47 K/uL (1.20-3.40); Lymphocytes % (auto) 12.5 %; Mean Corpuscular Hemoglobin 30.8 pg (25.0-34.0); Mean Corpuscular Hgb Conc 36.8 g/dL (32.0-36.0); Mean Corpuscular Volume 83.7 fL (80.0-100.0); Mean Platelet Volume 10.5 fL (9.4-12.4); Monocytes # (auto) 0.89 K/uL (0.11-0.59); Monocytes % (auto) 7.6 %; Neutrophils # (auto) 8.57 K/uL (1.40-6.50); Neutrophils % (auto) 72.7 %; Platelet Count 256 K/uL (130-400); RDW Coefficient of Variation 12.6 % (11.5-14.5); RDW Standard Deviation 37.8 fL (36.4-46.3); Red Blood Count 5.46 M/uL (4.70-6.10); White Blood Count 11.77 K/ul (4.8-10.8)
[2023-06-12 12:17] LABS: Base Excess VBG -1.6 mEq/L; HCO3 VBG 24 mmol/L; Oxygen Saturation VBG 75.2 %; PCO2 VBG 44 mmHg (38-50); PO2 VBG 48 mmHg; pH VBG 7.35 (7.36-7.41)
[2023-06-12 12:34] LABS: Albumin Level 4.9 gm/dl (3.4-5.0); BUN Creatinine Ratio 7.5 (10-20); Bilirubin Direct 0.1 mg/dl (0-0.2); Bilirubin,Total 0.6 mg/dl (0.2-1.0); Calcium 9.4 mg/dl (8.6-10.3); Creatinine Clr Calc Pharmacy 144.3 ml/min; Est GFR (African American) 119.4 ml/min; Potassium 3.8 mmol/L (3.5-5.1)
--- NOTE | 2023-06-12 12:38 | XRay Report ---
XR chest 1V portable CLINICAL HISTORY: shob TECHNIQUE: Single frontal radiograph of the chest was obtained. Comparison: Comparison is made to chest radiograph 10/07/2017 FINDINGS: No lines and tubes are seen. Cardiomegaly is noted. The lungs are clear. No evidence of pleural effus ion or pneumothorax. IMPRESSION: No acute abnormalities and in particular no radiographic evidence of pneumonia. ACT 112: Negative or not required by law. Electronically signed by: Devan Ortega M.D. 06/12/2023 12:37 PM
[2023-06-12] MEDS: SODIUM CHLORIDE 0.9% 1,000 ML IV ONE (12:42)
--- NOTE | 2023-06-12 13:21 | History & Physical Report ---
Date of Service June 12, 2023 Assessment & Plan (1) Asthma exacerbation: Plan: Workup reveals COVID-19 infection likely the trigger of asthma exacerbation which is severe. Patient is intermittently going into tripod position, is profusely sweating and is demonstrating use of accessory muscles and despite tachypnea has a normal pCO2 on ABG. He is appearing anxious because of his breathlessness and persistent coughing. Severe exacerbation symptoms have been ongoing for the past 3 days with initial respiratory symptoms starting approximately 3 weeks ago. Will avoid remdesivir for covid-19 given the timing of symptoms. He did receive Decadron in the ER and will continue with Solu- Medrol IV overnight. Continue oxygen supplementation. Continue scheduled nebulized bronchodilator therapy and will add ipratropium. Antibiotics have not been shown to be effective in studies so will not continue doxycycline started in the ER. Peak flow evaluation twice daily to monitor improvement. Cont Singulair per home regimen. Appreciate pulmonology recommendations. (2) COVID-19 virus infection: (3) DMII (diabetes mellitus, type 2): Plan: chronic, stable. Well controlled per outpatient A1C 6.7 in 2021. Will repeat A1C now. Cont basal bolus insulin while hospitalized and using steroids. Hold home jardiance and metformin. Cont gabapentin for known polyneuropathy. (4) Hypertension: Plan: Elevated BP to 199/111 in the ER today, likely secondary to anxiety related to breathlessness. Additionally patient didn't take his home losartan or amlodpine this morning. Restarted home medications and gave hydralazine IV in the ER. Repeat BP came down to 148/88. Cont home meds. DVT proph: Lovenox Full Code Dispo-to PCU I spent a total [id number] coordinating, documenting, and providing care for this patient excluding time spent in the performance of separately billed services Jamilah Holley DO [facility] Hospitalist History of Present Illness Chief Complaint: cough Primary Care Provider: Parker Rubio MD Patient presents to the ER complaining of coughing and shortness of breath that has been worse during the last 3 days. Cough is described as a dry hacking nonproductive cough that is continuous and started 3 weeks ago. While in the ER he was noted to be 91% on room air and the patient requested to be placed on 2 L nasal cannula for comfort. He was administered 1 g of magnesium and hour-long albuterol neb and 10 mg of IV dexamethasone. Patient has a known history of asthma and has been using his inhalers and nebulizers at home. He does report a history of diabetes as well. He denies fevers or chills and has no nasal symptoms. He reports a generalized chest heaviness when he tries to take a deep breath and functional capacity is decreased. He reports having to stop three tmes when walking next door because of stopping to catch his breath. Typically, he is very active. 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 He reports no recent asthma exacerbations and was hospita lized two years ago. He has never required intubation. He doesn't have a peak flow meter at home. He reports ongoing and worsening SOB and wheezing, improved with nebulized bronchodilators today. He does report seasonal allergies and uses Flonase nasal spray as needed. Typically his asthma is well controlled with Advair and singulair. He does have a h/o nasal polyp removal and has a chronic body rash that is erythematous and papular all down his back--chronic per samuel who is at bedside and is also an RN. Workup reveals covid-19 infection with no evidence of pneumonia on CXR. ABG is WNL. Allergies Allergy/AdvReac Type Severity Reaction Status Date / Time erythromycin base AdvReac Severe THROAT Unverified 06/12/23 13:28 SWELLING Home Medications Medication Instructions Recorded Confirmed Type amlodipine 5 mg tablet 5 mg PO QAM 06/12/23 06/12/23 History atorvastatin 10 mg tablet 10 mg PO HS 06/12/23 06/12/23 History empagliflozin 10 mg tablet 10 mg PO QAM 06/12/23 06/12/23 History (Jardiance) fluticasone 500 mcg-salmeterol 50 1 inh inhalation BID 06/12/23 06/12/23 History mcg/dose blistr powdr for inhalation fluticasone propionate 50 1 spray intranasal BID PRN 06/12/23 06/12/23 History mcg/actuation nasal Congestion spray,suspension gabapentin 100 mg capsule 100 mg PO TID 06/12/23 06/12/23 History losartan 100 mg tablet 100 mg PO QAM 06/12/23 06/12/23 History metformin 1,000 mg tablet 1,000 mg PO BID 06/12/23 06/12/23 History montelukast 10 mg tablet 10 mg PO HS 06/12/23 06/12/23 History multivitamin 1 tab PO QAM 06/12/23 06/12/23 History omeprazole 20 mg capsule,delayed 20 mg PO QAM 06/12/23 06/12/23 History release triamcinolone acetonide 0.1 % 1 applic topical BID PRN FLARE 06/12/23 06/12/23 History topical cream Past Med/Surg History Medical History Smokeless tobacco use Psoriasis GERD (gastroesophageal reflux disease) Hypercholesterolemia Deviated nasal septum Thoracic aortic aneurysm without rupture Diabetic sensorimotor polyneuropathy Hypertension Surgical History S/P tonsillectomy and adenoidectomy H/O vasectomy H/O endoscopic sinus surgery S/P rhinoplasty Family History Mother Coronary heart disease Grandmother (Paternal) Asthma Coronary heart disease Social History Smoking Status: Never smoker Tobacco Type: Smokeless Tobacco (Dip or Chew) Second Hand Exposure: No; Do You Dip or Chew Tobacco: Yes; Hx Alcohol Use: No Hx Substance Use: No Preferred Language: Venezuelan Communication Ability: Effective Traffic Signal Repairer Required: No Beliefs That Will Affect Care: None marital status: Life Partner Current Living Situation: Spouse current occupational status: employed 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 Walked to bathroom and became easily winded. Occasionally moving into tripod position to get more air. EYES: normal conjunctivae, no scleral icterus ENT: external ear and nose normal, oropharynx clear, no TM abnormality, no maxillary or ethmoid sinus tenderness NECK: trachea midline, no lymphadenopathy RESPIRATORY: diffuse wheezing throughout, no crackles or rales, increased respiratory effort CARDIOVASCULAR: regular rate and rhythm, S1 and 2 heard without murmurs, gallops or rubs, no JVD, no peripheral edema CHEST: inspection of chest was normal GASTROINTESTINAL: soft, nontender, ND, no guarding MUSCULOSKELETAL: strength 5/5 throughout, head is normocephalic and atraumatic SKIN: warm and diaphoretic, +erythematous rash on posterior lower back, genera lized. Pt had pants on and was uncomfortable with his breathing making it difficult to examine legs at this time. NEUROLOGIC: No facial palsy, no dysarthria. CN 2-12 grossly intact, no sensory deficit, normal cognition, normal speech, no tremor PSYCHIATRIC: alert cooperative and oriented to person, place and time. Euthymic mood, makes good eye contact, language grossly intact, recent and [place] te memory grossly intact. Results & Data Results & Data Vital Signs (Past 12 Hours) Vital Signs Temp Pulse Resp BP Pulse Ox O2 Del Method 06/12/23 13:00 91 H 22 174/100 H 94 Room Air 06/12/23 12:30 89 15 167/102 H 93 Room Air 06/12/23 12:20 89 12 176/97 H 96 06/12/23 11:30 89 06/12/23 11:25 89 21 199/115 H 93 Room Air 06/12/23 11:10 36.5 C 90 19 173/105 H 93 Room Air Laboratory Results Short CBC 06/12/23 Range/Units 11:45 WBC 11.77 H (4.8-10.8) K/ul Hgb 16.8 (14.0-18.0) g/dl Hct 45.7 (42.0-52.0) % Plt Count 256 (130-400) K/uL BMP 06/12/23 11:45 Sodium 139 Potassium 3.8 Chloride 104 Carbon Dioxide 26 BUN 5 L Creatinine 0.67 Glucose 136 H Calcium 9.4 Liver Function 06/12/23 Range/Units 11:45 Total Bilirubin 0.6 (0.2-1.0) mg/dl Direct Bilirubin 0.1 (0-0.2) mg/dl AST 18 (13-39) U/L ALT 18 (7-52) U/L Alkaline Phosphatase 78 (34-104) U/L Albumin 4.9 (3.4-5.0) gm/dl Diagnostic Findings Chest X-Ray 06/12/23 11:31 XR chest 1V portable CLINICAL HISTORY: shob TECHNIQUE: Single frontal radiograph of the chest was obtained. Comparison: Comparison is made to chest radiograph 10/07/2017 FINDINGS: No lines and tubes are seen. Cardiomegaly is noted. The lungs are clear. No evidence of pleural effusion or pneumothorax. IMPRESSION: No acute abnormalities and in particular no radiographic evidence of pneumonia. ACT 112: Negative or not required by law. Electronically signed by: Devan Ortega M.D. 06/12/2023 12:37 PM Code Status & VTE Plan VTE Prophylaxis Plan VTE Prophylaxis will be ordered: Yes (1) Asthma exacerbation Asthma severity: severe Asthma persistence: unspecified Qualified Code(s): J45.901 - Unspecified asthma with (acute) exacerbation
[2023-06-12 13:34] LABS: Adenovirus PCR Not Detected (NotDetected); Bordetella parapertussis PCR Not Detected (NotDetected); Bordetella pertussis PCR Not Detected (NotDetected); Chlamydia pneumoniae PCR Not Detected (NotDetected); Coronavirus 229E PCR Not Detected (NotDetected); Coronavirus CoV-2 (COVID19)PCR DETECTED (NotDetected); Coronavirus HKU1 PCR Not Detected (NotDetected); Coronavirus NL63 PCR Not Detected (NotDetected); Coronavirus OC43PCR Not Detected (NotDetected); Human Metapneumovirus PCR Not Detected (NotDetected); Influenza A PCR Not Detected (NotDetected); Influenza B PCR Not Detected (NotDetected); Mycoplasma pneumoniae PCR Not Detected (NotDetected); Parainfluenza Virus 1 PCR Not Detected (NotDetected); Parainfluenza Virus 2 PCR Not Detected (NotDetected); Parainfluenza Virus 3 PCR Not Detected (NotDetected); Parainfluenza Virus 4 PCR Not Detected (NotDetected); Respiratory Syncytial VirusPCR Not Detected (NotDetected); Rhinovirus/Enterovirus PCR Not Detected (NotDetected)
[2023-06-12] MEDS: DOXYCYCLINE HYCLATE 100 MG in DEXTROSE 5% MINI-B 100 ML IV STA (13:58)
[2023-06-12] MEDS: guaiFENesin/CODEINE 100MG/10MG 5ML UDC PO STA (14:21)
[2023-06-12] MEDS: hydrALAZINE HCL 20 MG/ML VIAL IV ONE (14:23)
[2023-06-12] MEDS: LOSARTAN POTASSIUM 50 MG TAB PO SCH (15:11)
[2023-06-12] MEDS: GABAPENTIN 100 MG CAP PO SCH (15:11)
[2023-06-12] MEDS: amLODIPine BESYLATE 5 MG TAB PO SCH (15:11)
[2023-06-12] MEDS ORDERED: DEXTROSE 50% 50 ML SYRINGE IV PRN (15:20)
[2023-06-12] MEDS ORDERED: ACETAMINOPHEN 325 MG TAB PO PRN (15:20)
[2023-06-12] MEDS ORDERED: GLUCOSE 40% GEL 15 GM TUBE PO PRN (15:20)
[2023-06-12] MEDS ORDERED: GLUCAGON FOR INJ 1 MG VIAL SQ PRN (15:20)
[2023-06-12] MEDS ORDERED: POLYETHYLENE (MIRALAX) 17 GM PACK PO PRN (15:20)
[2023-06-12] MEDS ORDERED: GLUCOSE 10 TAB/TUBE PO PRN (15:20)
[2023-06-12] MEDS ORDERED: CARBOHYDRATES FOR HYPOGLYCEMIA PO PRN (15:20)
[2023-06-12 15:24] LABS: Base Excess ABG -2.9 mEq/L (-9-1.8); HCO3 ABG 22 mmol/L (19-24); Oxygen Saturation ABG 96.2 % (90-95); PCO2 ABG 38 mmHg (35-46); PO2 ABG 77 mmHg (80-95); pH ABG 7.37 (7.35-7.45)
[2023-06-12 15:25] LABS: Allen Test Pos (Pos)
[2023-06-12] MEDS: ALBUTEROL 0.083% NEBU SOLN 3 ML VIAL NEB SCH (15:25)
[2023-06-12] MEDS: INSULIN ASPART PER UNIT CHARGE SC SCH (18:36)
[2023-06-12] MEDS: ALBUT/IPRATROP 3MG/0.5MG NEB 3 ML VIAL NEB SCH (18:37)
[2023-06-12] MEDS: COUGH DROP (SUGAR FREE) LOZ 24 LOZ/1 BOX BUCCAL STA (18:39)
[2023-06-12] MEDS ORDERED: BENZONATATE 100 MG CAPSULE PO PRN (21:25)
[2023-06-12] MEDS: MONTELUKAST SODIUM 10 MG TABLET PO SCH (21:43)
[2023-06-12] MEDS: ATORVASTATIN 10 MG TAB PO SCH (21:43)
[2023-06-12] MEDS: FLUTICASONE PROPIONATE NA SPR 16 GM BTL NAE SCH (21:44)
[2023-06-12] MEDS: methylPREDNISolone 40 MG in SYRINGE 0 ML IV SCH (21:45)
[2023-06-12] MEDS: ENOXAPARIN INJ 40 MG/0.4 ML SYR SQ SCH (21:46)
[2023-06-12] MEDS: LANTUS PER UNIT CHARGE SQ SCH (21:47)
[2023-06-12] MEDS: guaiFENesin SUGAR FREE 200 MG/10 ML UDC PO PRN (22:14)
[2023-06-13 06:36] LABS: Hematocrit (blood only) 44.7 % (42.0-52.0); Hemoglobin 15.6 g/dl (14.0-18.0); Mean Corpuscular Hemoglobin 29.9 pg (25.0-34.0); Mean Corpuscular Hgb Conc 34.9 g/dL (32.0-36.0); Mean Corpuscular Volume 85.6 fL (80.0-100.0); Mean Platelet Volume 10.5 fL (9.4-12.4); Platelet Count 239 K/uL (130-400); RDW Coefficient of Variation 12.6 % (11.5-14.5); Red Blood Count 5.22 M/uL (4.70-6.10); White Blood Count 10.41 K/ul (4.8-10.8)
[2023-06-13 06:51] LABS: BUN Creatinine Ratio 15.8 (10-20); Creatinine Clr Calc Pharmacy 168.7 ml/min; Est GFR (African American) 127.6 ml/min; Est GFR (Non-African American) 110.1 ml/min
[2023-06-13 07:10] LABS: Estimated Average Glucose 157 mg/dl; Hemoglobin A1C 7.1 % (4.5-5.6)
--- NOTE | 2023-06-13 07:57 | Electrocardiogram Report ---
Test Reason : Blood Pressure : / mmHG Vent. Rate : 088 BPM Atrial Rate : 088 BPM P-R Int : 192 ms QRS Dur : 096 ms QT Int : 372 ms P-R-T Axes : 077 071 060 degrees QTc Int : 450 ms Normal sinus rhythm Incomplete right bundle branch block Nonspecific T wave abnormality Septal leads When compared with ECG of 07-OCT-2017 10:01, Incomplete right bundle branch block now present Nonspecific T wave abnormality now evident in Septal leads Confirmed by Parish Reyes ([id number]) on 06/13/2023 7:57:01 AM Referred By: Confirmed By:Parish Reyes
[2023-06-13] MEDS: FLUTICASONE/VILANTEROL 200/25MCG 14 PUFFS/INHALER INH SCH (08:39)
[2023-06-13] MEDS: MULTIVITAMIN TAB PO SCH (08:40)
[2023-06-13] MEDS: PANTOprazole 40 MG TAB PO SCH (08:40)
--- NOTE | 2023-06-13 08:52 | Pulmonary Consultation ---
Date of Consultation June 13, 2023 Assessment & Plan (1) Asthma exacerbation: Asthma severity: severe Asthma persistence: persistent Qualified Code(s): J45.51 - Severe persistent asthma with (acute) exacerbation (2) COVID-19 virus infection: Plan Impression: 63-year-old male with asthma, PFTs not available, admitted with COVID infection and asthma exacerbation. He is responded favorably to interventions at this point in time and is doing quite well clinically. Recommendations 1. COVID: No indication for antiviral therapies. Steroids will be covered as noted below although the patient does not technically meet criteria for dexamethasone for COVID. 2. Asthma: Transition to oral prednisone for 5 days at 40 mg a day. Continue Breo 200/25 which can be transitioned back to the patient's Advair at discharge. As needed albuterol/Atrovent. 3. Hypoxemia: Secondary to #1 and #2. Wean oxygen as tolerated. Patient should be out of bed to chair as tolerated and ambulate as tolerated. Incentive spirometry can be performed. Patient should be assessed for oxygen prior to discharge. Patient appears to be responding favorably to therapy. He can likely be dismissed from the hospital within the next 12 to 24 hours. He can follow-up with his outpatient pulmonary providers in the [facility] system. Thanks for the opportunity of participating in the care of this patient. Feel free to contact us with questions or concerns. Pulmonary will sign off at this point in time. History of Present Illness Attending Physician: Jamilah Holley, History of Present Illness Asked by hospitalist to evaluate this patient admitted with COVID and asthma exacerbation. History is obtained from review the electronic medical record as well as discussion with the patient. Patient is a 63-year-old male with a history of asthma followed in the outpatient [facility] pulmonary clinic. PFTs were not available to review. The patient is maintained in the outpatient setting on Advair Singulair and as needed albuterol. He states that when he is well-controlled he needs his albuterol less than once a week. His last exacerbation requiring hospitalization was a few years ago. He does not require prednisone on a chronic basis. He reports that his breathing does tend to be more difficult in the spring. The patient is a lifelong non-smoker. 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 No significant family history of lung disease. He was found to be COVID-positive in the emergency room where he presented for evaluation of 3-day history of increasing shortness of breath and cough. He received steroids and nebulized bronchodilators as well as magnesium in the emergency room. He is much better this morning. He is on some oxygen but this may be able to be weaned off. His chest tightness has improved significantly. He is not having any fevers, chills, or night sweats. Allergies Allergy/AdvReac Type Severity Reaction Status Date / Time erythromycin base AdvReac Severe THROAT Unverified 06/12/23 13:28 SWELLING Home Medications Medication Instructions Recorded Confirmed Type amlodipine 5 mg tablet 5 mg PO QAM 06/12/23 06/12/23 History atorvastatin 10 mg tablet 10 mg PO HS 06/12/23 06/12/23 History empagliflozin 10 mg tablet 10 mg PO QAM 06/12/23 06/12/23 History (Jardiance) fluticasone 500 mcg-salmeterol 50 1 inh inhalation BID 06/12/23 06/12/23 History mcg/dose blistr powdr for inhalation fluticasone propionate 50 1 spray intranasal BID PRN 06/12/23 06/12/23 History mcg/actuation nasal Congestion spray,suspension gabapentin 100 mg capsule 100 mg PO TID 06/12/23 06/12/23 History losartan 100 mg tablet 100 mg PO QAM 06/12/23 06/12/23 History metformin 1,000 mg tablet 1,000 mg PO BID 06/12/23 06/12/23 History montelukast 10 mg tablet 10 mg PO HS 06/12/23 06/12/23 History multivitamin 1 tab PO QAM 06/12/23 06/12/23 History omeprazole 20 mg capsule,delayed 20 mg PO QAM 06/12/23 06/12/23 History release triamcinolone acetonide 0.1 % 1 applic topical BID PRN FLARE 06/12/23 06/12/23 History topical cream Patient History Medical History Smokeless tobacco use Psoriasis GERD (gastroesophageal reflux disease) Hypercholesterolemia Deviated nasal septum Thoracic aortic aneurysm without rupture Diabetic sensorimotor polyneuropathy Hypertension Surgical History S/P tonsillectomy and adenoidectomy H/O vasectomy H/O endoscopic sinus surgery S/P rhinoplasty Family History Mother Coronary heart disease Grandmother (Paternal) Asthma Coronary heart disease Social History Smoking Status: Never smoker Tobacco Type: Smokeless Tobacco (Dip or Chew) Second Hand Exposure: No; Do You Dip or Chew Tobacco: Yes; Hx Alcohol Use: No Hx Substance Use: No Preferred Language: Ukrainian Communication Ability: Effective Children'S Entertainer Required: No Beliefs That Will Affect Care: None marital status: Life Partner Current Living Situation: Spouse current occupational status: employed 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 No additions or deletions Physical Exam Constitutional: WD/WN, vitals as above Neck: trachea midline, no thyromegaly Respiratory: no respiratory distress, no labored breathing, no cough and not tachypneic Auscultation: + wheezes; no crackles Cardiovascular: RRR, no murmur, no edema Gastrointestinal (Abdomen): normal bowel sounds, soft, nontender, no hepatosplenomegaly Musculoskeletal: Extremities: extremities normal to inspection Skin: no rashes, warm and dry Neurologic: Nonfocal exam Lymphatic: no cervical lymphadenopathy Results & Data Results & Data Vital Signs (Past 12 Hours) Vital Signs Temp Pulse Pulse Resp BP Pulse Ox O2 Del Method 06/13/23 07:29 36.6 C 89 19 149/89 H 93 Nasal Cannula 06/13/23 07:17 82 06/13/23 07:13 87 16 95 Nasal Cannula 06/13/23 03:05 36.9 C 94 H 20 154/85 H 95 Nasal Cannula 06/13/23 00:13 91 H 06/12/23 23:36 36.7 C 99 H 19 155/99 H 93 Nasal Cannula 06/12/23 22:53 Nasal Cannula 06/12/23 19:50 36.5 C 94 H 152/89 H 94 Nasal Cannula O2 Flow Rate 06/13/23 07:29 2.5 06/13/23 07:17 06/13/23 07:13 2 06/13/23 03:05 1 06/13/23 00:13 06/12/23 23:36 2.5 06/12/23 22:53 2.5 06/12/23 19:50 2.5 Critical Care Results & Data Vital Signs (Past 12 Hours) Vital Signs Temp Pulse Pulse Resp BP Pulse Ox O2 Del Method 06/13/23 07:29 36.6 C 89 19 149/89 H 93 Nasal Cannula 06/13/23 07:17 82 06/13/23 07:13 87 16 95 Nasal Cannula 06/13/23 03:05 36.9 C 94 H 20 154/85 H 95 Nasal Cannula 06/13/23 00:13 91 H 06/12/23 23:36 36.7 C 99 H 19 155/99 H 93 Nasal Cannula 06/12/23 22:53 Nasal Cannula 06/12/23 19:50 36.5 C 94 H 152/89 H 94 Nasal Cannula O2 Flow Rate 06/13/23 07:29 2.5 06/13/23 07:17 06/13/23 07:13 2 06/13/23 03:05 1 06/13/23 00:13 06/12/23 23:36 2.5 06/12/23 22:53 2.5 06/12/23 19:50 2.5 Lab & Micro Results (Past 24 Hours) RBC 5.22 M/uL (4.70-6.10) 06/13/23 WBC 10.41 K/ul (4.8-10.8) 06/13/23 Hgb 15.6 g/dl (14.0-18.0) 06/13/23 Hct 44.7 % (42.0-52.0) 06/13/23 MCV 85.6 fL (80.0-100.0) 06/13/23 MCH 29.9 pg (25.0-34.0) 06/13/23 MCHC 34.9 g/dL (32.0-36.0) 06/13/23 RDW Standard Deviation 39.0 fL (36.4-46.3) 06/13/23 RDW Coefficient of Variation 12.6 % (11.5-14.5) 06/13/23 Plt Count 239 K/uL (130-400) 06/13/23 MPV 10.5 fL (9.4-12.4) 06/13/23 Neutrophils (%) (Auto) 72.7 % 06/12/23 Lymphocytes (%) (Auto) 12.5 % 06/12/23 Monocytes # (Auto) 0.89 K/uL (0.11-0.59) H 06/12/23 Eosinophils # (Auto) 0.67 K/uL (0.00-0.50) H 06/12/23 Immature Granulocyte % (Auto) 0.3 % 06/12/23 Neutrophils # (Auto) 8.57 K/uL (1.40-6.50) H 06/12/23 Lymphocytes # (Auto) 1.47 K/uL (1.20-3.40) 06/12/23 Monocytes # (Auto) 0.89 K/uL (0.11-0.59) H 06/12/23 Eosinophils # (Auto) 0.67 K/uL (0.00-0.50) H 06/12/23 Basophils # (Auto) 0.14 K/uL (0.00-0.20) 06/12/23 Immature Granulocyte # (Auto) 0.03 K/uL (0.01-0.20) 4 Na 137 mmol/L (136-145) 06/13/23 K 4.0 mmol/L (3.5-5.1) 06/13/23 Cl 105 mmol/L (98-107) 06/13/23 CO2 24 mmol/L (21-32) 06/13/23 Anion Gap 8 (3-11) 06/13/23 BUN 9 mg/dl (6-23) 06/13/23 Creatinine 0.57 mg/dl (0.6-1.4) L 06/13/23 Estimated GFR ( Amer) 127.6 ml/min 06/13/23 Estimated GFR (Non-Af Amer) 110.1 ml/min 06/13/23 BUN/Creatinine Ratio 15.8 (10-20) 06/13/23 Glu 190 mg/dl (70-99(Fasting)) H 06/13/23 Ca 9.0 mg/dl (8.6-10.3) 06/13/23 Total Bilirubin 0.6 mg/dl (0.2-1.0) 06/12/23 Direct Bilirubin 0.1 mg/dl (0-0.2) 06/12/23 AST 18 U/L (13-39) 06/12/23 ALT 18 U/L (7-52) 06/12/23 Alkaline Phosphatase 78 U/L (34-104) 06/12/23 TP 8.0 gm/dl (6.0-8.3) 06/12/23 Albumin 4.9 gm/dl (3.4-5.0) 06/12/23 Mg 2.0 mg/dl (1.7-2.4) 06/12/23 11:45 Calcium Level 9.0 mg/dl (8.6-10.3) 06/13/23 05:56 Venous Blood pH 7.35 (7.36-7.41) L 06/12/23 11:45 Venous Blood Partial Pressure CO2 44 mmHg (38-50) 06/12/23 11:4 5 Venous Blood Partial Pressure O2 48 mmHg 06/12/23 11:45 Venous Blood HCO3 24 mmol/L 06/12/23 11:45 Venous Blood Base Excess -1.6 mEq/L 06/12/23 11:45 Venous Blood Oxygen Saturation 75.2 % 06/12/23 11:45 Arterial Blood pH 7.37 (7.35-7.45) 06/12/23 15:18 Arterial Blood Partial Pressure CO2 38 mmHg (35-46) 06/12/23 15 :18 Arterial Blood Partial Pressure O2 77 mmHg (80-95) L 06/12/23 1 5:18 Arterial Blood HCO3 22 mmol/L (19-24) 06/12/23 15:18 Arterial Blood Base Excess -2.9 mEq/L (-9-1.8) 06/12/23 15:18 Arterial Blood Oxygen Saturation 96.2 % (90-95) H 06/12/23 15:1 8 Blood Gas Oxygen Given 2L O2 06/12/23 15:18 Kevin Test Pos (Pos) 06/12/23 15:18 Diagnostic Findings (Past 24 Hours) Chest X-Ray 06/12/23 11:31 XR chest 1V portable CLINICAL HISTORY: shob TECHNIQUE: Single frontal radiograph of the chest was obtained. Comparison: Comparison is made to chest radiograph 10/07/2017 FINDINGS: No lines and tubes are seen. Cardiomegaly is noted. The lungs are clear. No evidence of pleural effusion or pneumothorax. IMPRESSION: No acute abnormalities and in particular no radiographic evidence of pneumonia. ACT 112: Negative or not required by law. Electronically signed by: Devan Ortega M.D. 06/12/2023 12:37 PM I & O Totals 24 Hours 06/12/23 06/13/23 06/14/23 05:59 06:59 06:59 Intake Total Balance Cumulative 06/12/23 10:52 thru 06/13/23 05:45 Intake Total 3440 Balance 3440 RT Ventilator Mngmt (Last Documented) Ventilator Ordered Settings Respiratory Rate 19 06/13/23 07:29 Ventilator - PT Measurements Respiratory Rate 19 PG Care Time/CCT Total # of Minutes Spent Total Time Spent with Patient: Total time spent is greater than 50% in coordination of care (as documented) at patient's floor/unit and/or counseling patient: Coding Level of Care Code 40575 IN/OBS CONSULT LVL 4,60M Diagnoses Severe asthma with exacerbation, unspecified whether persistent J45.51 Asthma severity: severe Asthma persistence: persistent COVID-19 virus infection U07.1
[2023-06-13] MEDS: predniSONE 20 MG TAB PO SCH (09:09)
[2023-06-13] MEDS ORDERED: PHARMACY GLYCEMIC MGMT CONSULT PRN (09:36)
--- NOTE | 2023-06-13 14:20 | Pharmacy Report ---
Pharmacy Glycemic Short Note 2 - Date of Service June 13, 2023 - Glycemic Short BSG Results (Last 24 hours): 06/12/23 06/12/23 06/13/23 16:36 20:37 05:56 Glucose 190 H POC Glucose 199 H 187 H 06/13/23 06/13/23 07:28 11:31 Glucose POC Glucose 199 H 168 H OUTPATIENT ANTIDIABETIC REGIMEN: * Empagliflozin 10 mg , metformin 500 mg BID * A1c 7.1% 06/13/23 ASSESSMENT: * Patient admitted with COVID-19, initially given 10 mg of IV dexamethasone and then 40 mg IV Solumedrol q6H which has now been changed to prednisone 20 mg BID * Lantus initiated approximately weight based stress of 2- may need adjusted with decreasing steroids, will set scale for PM * Novolog weight based stress of 3- continue for now with ongoing steroids PLAN FOR INPATIENT GLYCEMIC CONTROL: * Hold outpatient oral diabetes medications * Basal insulin * Lantus 20 units SQ this AM, scale 10/20 units HS * Bolus insulin * NovoLog per scale ACHS or Q6hrs while NPO * Goal Range: Low 100 mg/dL - High 140 mg/dL * Correction Factor: 15 mg/dL/unit * Nutritional / Prandial insulin per carb ratio of 1 unit per 5 grams CHO consumed
--- NOTE | 2023-06-13 15:12 | Hospitalist Progress Note ---
Date of Service June 13, 2023 Assessment & Plan (1) Asthma exacerbation: Plan: Asthma Exacerbation COVID 19 infection --CXR:No acute abnormalities and in particular no radiographic evidence of pneumonia. --Biofire positive for COVID 19 --Blood Cultures:Negative to date --Normal Procalcitonin --Check CRP Continue nebs, prednisone, home inhalers Appreciate pulmonology input Weaned off of supplemental oxygen May need 2 step prior to discharge Antitussives as needed (2) COVID-19 virus infection: (3) DMII (diabetes mellitus, type 2): Plan: HbA1c 7.1 Hold p.o. meds Continue insulin per protocol Monitor BGs Continue gabapentin for neuropathy (4) Hypertension: Plan: Hypertensive urgency Likely situational Missed home antihypertensives prior to arrival Continue amlodipine, losartan Steroids also likely contributing to elevated BP Monitor and adjust medications as needed GERD Continue PPI DVT Px: Lovenox SQ Code Status Full Code Admission and Anticipated Discharge Date Admission Date: June 12, 2023 Subjective Patient is seen and examined at bedside States feeling a lot better today Less cough, dyspnea today Denies any chest pain, nausea, vomiting, abdominal pain Saturating well on room air Eager to get discharged Review of Systems Review of Systems: All systems reviewed & are unremarkable except as noted in Subjective Physical Exam Physical Exam: Physical Exam: Vitals signs as noted above General Appearance:Moderately built and nourished, no apparent distress Head: normocephalic, Atraumatic Eyes: normal inspection, EOMI Neck: supple, Trachea midline Respiratory/Chest: Decreased breath sounds, scant wheezes, No accessory muscle use Cardiovascular: S1, S2, No murmur Abdomen/GI:Soft, Non tender, Bowel sounds present Extremities/Musculoskeletal:normal inspection, no edema Neurologic/Psych:AAOX3, grossly no focal neurological deficits, +Decreased hearing Skin: normal color, warm Results & Data Results & Data Vital Signs (Past 12 Hours) Vital Signs Temp Pulse Pulse Resp BP Pulse Ox O2 Del Method 06/13/23 14:57 14 93 Room Air 06/13/23 14:54 75 06/13/23 12:13 90 06/13/23 12:13 Room Air 06/13/23 11:32 93 H 16 93 Room Air 06/13/23 11:30 36.5 C 81 20 146/95 H 95 Room Air 06/13/23 08:50 Room Air 06/13/23 07:29 36.6 C 89 19 149/89 H 93 Nasal Cannula 06/13/23 07:17 82 06/13/23 07:13 87 16 95 Nasal Cannula O2 Flow Rate 06/13/23 14:57 06/13/23 14:54 06/13/23 12:13 06/13/23 12:13 06/13/23 11:32 06/13/23 11:30 06/13/23 08:50 06/13/23 07:29 2.5 06/13/23 07:17 06/13/23 07:13 2 Laboratory Results Short CBC 06/13/23 Range/Units 05:56 WBC 10.41 (4.8-10.8) K/ul Hgb 15.6 (14.0-18.0) g/dl Hct 44.7 (42.0-52.0) % Plt Count 239 (130-400) K/uL BMP 06/13/23 05:56 Sodium 137 Potassium 4.0 Chloride 105 Carbon Dioxide 24 BUN 9 Creatinine 0.57 L Glucose 190 H Calcium 9.0 (1) Asthma exacerbation Asthma severity: severe Asthma persistence: persistent Qualified Code(s): J45.51 - Severe persistent asthma with (acute) exacerbation
[2023-06-13] MEDS: LANTUS PER UNIT CHARGE SQ SCH (20:43)
[2023-06-14 06:36] LABS: Hematocrit (blood only) 43.7 % (42.0-52.0); Hemoglobin 15.5 g/dl (14.0-18.0); Mean Corpuscular Hemoglobin 30.3 pg (25.0-34.0); Mean Corpuscular Hgb Conc 35.5 g/dL (32.0-36.0); Mean Corpuscular Volume 85.5 fL (80.0-100.0); Mean Platelet Volume 10.6 fL (9.4-12.4); Platelet Count 264 K/uL (130-400); RDW Coefficient of Variation 12.6 % (11.5-14.5); RDW Standard Deviation 39.3 fL (36.4-46.3); Red Blood Count 5.11 M/uL (4.70-6.10)
[2023-06-14 07:11] LABS: Albumin Level 4.1 gm/dl (3.4-5.0); BUN Creatinine Ratio 20.9 (10-20); Bilirubin Direct 0.1 mg/dl (0-0.2); Bilirubin,Total 0.5 mg/dl (0.2-1.0); C Reactive Protein 0.51 mg/dl (0-0.5); Calcium 8.9 mg/dl (8.6-10.3); Creatinine Clr Calc Pharmacy 142.9 ml/min; Est GFR (African American) 119.4 ml/min; Magnesium 2.2 mg/dl (1.7-2.4); Potassium 4.2 mmol/L (3.5-5.1)
--- NOTE | 2023-06-14 13:06 | Hospitalist Progress Note ---
Date of Service June 14, 2023 Assessment & Plan (1) Asthma exacerbation: Plan: Asthma Exacerbation COVID 19 infection --CXR:No acute abnormalities and in particular no radiographic evidence of pneumonia. --Biofire positive for COVID 19 --Blood Cultures:Negative to date --Normal Procalcitonin -- CRP: 0.51 Continue nebs, prednisone, home inhalers Appreciate pulmonology input Weaned off of supplemental oxygen 2 step: did not qualify for oxygen Antitussives as needed Plan to discharge home (2) COVID-19 virus infection: (3) DMII (diabetes mellitus, type 2): Plan: HbA1c 7.1 Hold p.o. meds Continue insulin per protocol Monitor BGs Continue gabapentin for neuropathy (4) Hypertension: Plan: Hypertensive urgency Likely situational Missed home antihypertensives prior to arrival Continue amlodipine, losartan Steroids also likely contributing to elevated BP BP better GERD Continue PPI DVT Px: Lovenox SQ Code Status Full Code Disposition Home Admission and Anticipated Discharge Date Admission Date: June 12, 2023 Subjective Patient is seen and examined at bedside Reports no complaints today Dyspnea resolved Cough much improved Saturating well on room air Had 2 step earlier today Denies any chest pain, nausea, vomiting, abdominal pain Plan to discharge home today Review of Systems Review of Systems: All systems reviewed & are unremarkable except as noted in Subjective Physical Exam Physical Exam: Physical Exam: Vitals signs as noted above General Appearance:Moderately built and nourished, no apparent distress Head: normocephalic, Atraumatic Eyes: normal inspection, EOMI Neck: supple, Trachea midline Respiratory/Chest: Decreased breath sounds, CTA, No accessory muscle use Cardiovascular: S1, S2, No murmur Abdomen/GI:Soft, Non tender, Bowel sounds present Extremities/Musculoskeletal:normal inspection, no edema Neurologic/Psych:AAOX3, grossly no focal neurological deficits, +Decreased hearing Skin: normal color, warm Results & Data Results & Data Vital Signs (Past 12 Hours) Vital Signs Temp Pulse Pulse Pulse Pulse Pulse Resp 06/14/23 11:49 36.9 C 80 19 06/14/23 10:34 94 H 16 06/14/23 10:30 102 H 89 78 06/14/23 09:00 06/14/23 07:34 36.8 C 80 19 06/14/23 07:23 76 06/14/23 07:13 72 18 06/14/23 04:15 36.9 C 76 18 Resp Resp Resp BP Pulse Ox Pulse Ox Pulse Ox 06/14/23 11:49 134/75 94 06/14/23 10:34 94 06/14/23 10:30 18 16 16 93 92 06/14/23 09:00 06/14/23 07:34 142/85 H 93 06/14/23 07:23 06/14/23 07:13 94 06/14/23 04:15 140/86 96 Pulse Ox O2 Del Method 06/14/23 11:49 Room Air 06/14/23 10:34 Room Air 06/14/23 10:30 94 06/14/23 09:00 Room Air 06/14/23 07:34 Room Air 06/14/23 07:23 06/14/23 07:13 Room Air 06/14/23 04:15 Room Air Laboratory Results Short CBC 06/14/23 Range/Units 06:05 WBC 15.80 H (4.8-10.8) K/ul Hgb 15.5 (14.0-18.0) g/dl Hct 43.7 (42.0-52.0) % Plt Count 264 (130-400) K/uL BMP 06/14/23 06:05 Sodium 139 Potassium 4.2 Chloride 105 Carbon Dioxide 28 BUN 14 Creatinine 0.67 Glucose 158 H Calcium 8.9 Liver Function 06/14/23 Range/Units 06:05 Total Bilirubin 0.5 (0.2-1.0) mg/dl Direct Bilirubin 0.1 (0-0.2) mg/dl AST 20 (13-39) U/L ALT 15 (7-52) U/L Alkaline Phosphatase 58 (34-104) U/L Albumin 4.1 (3.4-5.0) gm/dl (1) Asthma exacerbation Asthma persistence: persistent Asthma severity: severe Qualified Code(s): J45.51 - Severe persistent asthma with (acute) exacerbation
--- NOTE | 2023-06-14 13:36 | Discharge Summary ---
Date of Service June 14, 2023 Admission HPI Per Admitting Provider Patient presents to the ER complaining of coughing and shortness of breath that has been worse during the last 3 days. Cough is described as a dry hacking nonproductive cough that is continuous and started 3 weeks ago. While in the ER he was noted to be 91% on room air and the patient requested to be placed on 2 L nasal cannula for comfort. He was administered 1 g of magnesium and hour-long albuterol neb and 10 mg of IV dexamethasone. Patient has a known history of asthma and has been using his inhalers and nebulizers at home. He does report a history of diabetes as well. He denies fevers or chills and has no nasal symptoms. He reports a generalized chest heaviness when he tries to take a deep breath and functional capacity is decreased. He reports having to stop three tmes when walking next door because of stopping to catch his breath. Typically, he is very active. 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 He reports no recent asthma exacerbations and was hospitalized two years ago. He has never required intubation. He doesn't have a peak flow meter at home. He reports ongoing and worsening SOB and wheezing, improved with nebulized bronchodilators today. He does report seasonal allergies and uses Flonase nasal spray as needed. Typically his asthma is well controlled with Advair and singulair. He does have a h/o nasal polyp removal and has a chronic body rash that is erythematous and papular all down his back--chronic per samuel who is at bedside and is also an RN. Workup reveals covid-19 infection with no evidence of pneumonia on CXR. ABG is WNL. Admission Exam Per Admitting Provider CONSTITUTIONAL: WNWD, vitals as above, generally appears uncomfortable 2/2 SOB. Walked to bathroom and became easily winded. Occasionally moving into tripod position to get more air. EYES: normal conjunctivae, no scleral icterus ENT: external ear and nose normal, oropharynx clear, no TM abnormality, no maxillary or ethmoid sinus tenderness NECK: trachea midline, no lymphadenopathy RESPIRATORY: diffuse wheezing throughout, no crackles or rales, increased respiratory effort CARDIOVASCULAR: regular rate and rhythm, S1 and 2 heard without murmurs, gallops or rubs, no JVD, no peripheral edema CHEST: inspection of chest was normal GASTROINTESTINAL: soft, nontender, ND, no guarding MUSCULOSKELETAL: strength 5/5 throughout, head is normocephalic and atraumatic SKIN: warm and diaphoretic, +erythematous rash on posterior lower back, generalized. Pt had pants on and was uncomfortable with his breathing making it difficult to examine legs at this time. NEUROLOGIC: No facial palsy, no dysarthria. CN 2-12 grossly intact, no sensory deficit, normal cognition, normal speech, no tremor PSYCHIATRIC: alert cooperative and oriented to person, place and time. Euthymic mood, makes good eye contact, language grossly intact, recent and remote memory grossly intact. Principal Diagnosis Asthma Exacerbation COVID 19 infection Discharge Data Allergies Allergy/AdvReac Type Severity Reaction Status Date / Time erythromycin base AdvReac Severe THROAT Unverified 06/12/23 13:28 SWELLING Consultations 06/12/23 13:09 ED Decision to Admit Stat 06/12/23 16:27 Consult Pulmonology Routine Procedures Performed Laboratory Results WBC 15.80 K/ul (4.8-10.8) H 06/14/23 06:05 RBC 5.11 M/uL (4.70-6.10) 06/14/23 06:05 Hgb 15.5 g/dl (14.0-18.0) 06/14/23 06:05 Hct 43.7 % (42.0-52.0) 06/14/23 06:05 MCV 85.5 fL (80.0-100.0) 06/14/23 06:05 MCH 30.3 pg (25.0-34.0) 06/14/23 06:05 MCHC 35.5 g/dL (32.0-36.0) 06/14/23 06:05 RDW Std Deviation 39.3 fL (36.4-46.3) 06/14/23 06:05 RDW Coeff of Bryant 12.6 % (11.5-14.5) 06/14/23 06:05 Plt Count 264 K/uL (130-400) 06/14/23 06:05 MPV 10.6 fL (9.4-12.4) 06/14/23 06:05 Immature Gran % (Auto) 0.3 % 06/12/23 11:45 Neut % (Auto) 72.7 % 06/12/23 11:45 Lymph % (Auto) 12.5 % 06/12/23 11:45 Russell % (Auto) 7.6 % 06/12/23 11:45 Eos % (Auto) 5.7 % 06/12/23 11:45 Baso % (Auto) 1.2 % 06/12/23 11:45 Neut # (Auto) 8.57 K/uL (1.40-6.50) H 06/12/23 11:45 Lymph # (Auto) 1.47 K/uL (1.20-3.40) 06/12/23 11:45 Russell # (Auto) 0.89 K/uL (0.11-0.59) H 06/12/23 11:45 Eos # (Auto) 0.67 K/uL (0.00-0.50) H 06/12/23 11:45 Baso # (Auto) 0.14 K/uL (0.00-0.20) 06/12/23 11:45 Immature Gran # (Auto) 0.03 K/uL (0.01-0.20) 06/12/23 11:45 ABG pH 7.37 (7.35-7.45) 06/12/23 15:18 ABG pCO2 38 mmHg (35-46) 06/12/23 15:18 ABG pO2 77 mmHg (80-95) L 06/12/23 15:18 ABG HCO3 22 mmol/L (19-24) 06/12/23 15:18 ABG O2 Saturation 96.2 % (90-95) H 06/12/23 15:18 ABG Base Excess -2.9 mEq/L (-9-1.8) 06/12/23 15:18 Kevin Test Pos (Pos) 06/12/23 15:18 VBG pH 7.35 (7.36-7.41) L 06/12/23 11:45 VBG pCO2 44 mmHg (38-50) 06/12/23 11:45 VBG pO2 48 mmHg 06/12/23 11:45 VBG HCO3 24 mmol/L 06/12/23 11:45 VBG O2 Saturation 75.2 % 06/12/23 11:45 VBG Base Excess -1.6 mEq/L 06/12/23 11:45 Barometric Pressure Cancelled 06/12/23 14:34 Oxygen Given 2L O2 06/12/23 15:18 Sodium 139 mmol/L (136-145) 06/14/23 06:05 Potassium 4.2 mmol/L (3.5-5.1) 06/14/23 06:05 Chloride 105 mmol/L (98-107) 06/14/23 06:05 Carbon Dioxide 28 mmol/L (21-32) 06/14/23 06:05 Anion Gap 6 (3-11) 06/14/23 06:05 BUN 14 mg/dl (6-23) 06/14/23 06:05 Creatinine 0.67 mg/dl (0.6-1.4) 06/14/23 06:05 Est Cr Clr Drug Dosing 142.9 ml/min 06/14/23 06:05 Est GFR ( Amer) 119.4 ml/min 06/14/23 06:05 Est GFR (Non-Af Amer) 103.0 ml/min 06/14/23 06:05 BUN/Creatinine Ratio 20.9 (10-20) H 06/14/23 06:05 Glucose 158 mg/dl (70-99(Fasting)) H 06/14/23 06:05 POC Glucose 125 mg/dl (70-99) H 06/14/23 11:37 Estimat Average Glucose 157 mg/dl 06/13/23 05:56 Hemoglobin A1c 7.1 % (4.5-5.6) H 06/13/23 05:56 Lactate 1.2 mmol/L (0.4-2.0) 06/12/23 14:34 Calcium 8.9 mg/dl (8.6-10.3) 06/14/23 06:05 Magnesium 2.2 mg/dl (1.7-2.4) 06/14/23 06:05 Total Bilirubin 0.5 mg/dl (0.2-1.0) 06/14/23 06:05 Direct Bilirubin 0.1 mg/dl (0-0.2) 06/14/23 06:05 AST 20 U/L (13-39) 06/14/23 06:05 ALT 15 U/L (7-52) 06/14/23 06:05 Alkaline Phosphatase 58 U/L (34-104) 06/14/23 06:05 Troponin I High Sens 16.6 pg/ml (0-20) 06/12/23 12:15 C-Reactive Protein 0.51 mg/dl (0-0.5) H 06/14/23 06:05 Total Protein 7.0 gm/dl (6.0-8.3) 06/14/23 06:05 Albumin 4.1 gm/dl (3.4-5.0) 06/14/23 06:05 Procalcitonin < 0.02 ng/ml (0-0.5) 06/12/23 11:45 Adenovirus (PCR) Not Detected (NotDetected) 06/12/23 12:18 B. pertussis DNA (PCR) Not Detected (NotDetected) 06/12/23 12:18 B.parapertussis DNA PCR Not Detected (NotDetected) 06/12/23 12:18 C. pneumoniae DNA (PCR) Not Detected (NotDetected) 06/12/23 12:18 Coronavirus OC43 (PCR) Not Detected (NotDetected) 06/12/23 12:18 Coronavirus HKU1 (PCR) Not Detected (NotDetected) 06/12/23 12:18 Coronavirus 229E (PCR) Not Detected (NotDetected) 06/12/23 12:18 SARS-CoV-2 (PCR) DETECTED (NotDetected) A 06/12/23 12:18 Coronavirus NL63 (PCR) Not Detected (NotDetected) 06/12/23 12:18 Human Metapneumovir PCR Not Detected (NotDetected) 06/12/23 12:18 Influenza Type A (PCR) Not Detected (NotDetected) 06/12/23 12:18 Influenza Type B (PCR) Not Detected (NotDetected) 06/12/23 12:18 M. pneumoniae (PCR) Not Detected (NotDetected) 06/12/23 12:18 Parainfluenza 1 (PCR) Not Detected (NotDetected) 06/12/23 12:18 Parainfluenza 2 (PCR) Not Detected (NotDetected) 06/12/23 12:18 Parainfluenza 3 (PCR) Not Detected (NotDetected) 06/12/23 12:18 Parainfluenza 4 (PCR) Not Detected (NotDetected) 06/12/23 12:18 RSV (PCR) Not Detected (NotDetected) 06/12/23 12:18 Entero/Rhino (PCR) Not Detected (NotDetected) 06/12/23 12:18 Impressions Chest X-Ray 06/12/23 11:31 XR chest 1V portable CLINICAL HISTORY: shob TECHNIQUE: Single frontal radiograph of the chest was obtained. Comparison: Comparison is made to chest radiograph 10/07/2017 FINDINGS: No lines and tubes are seen. Cardiomegaly is noted. The lungs are clear. No evidence of pleural effusion or pneumothorax. IMPRESSION: No acute abnormalities and in particular no radiographic evidence of pneumonia. ACT 112: Negative or not required by law. Electronically signed by: Devan Ortega M.D. 06/12/2023 12:37 PM Hospital Course (1) Asthma exacerbation: Asthma Exacerbation COVID 19 infection --CXR:No acute abnormalities and in particular no radiographic evidence of pneumonia. --Biofire positive for COVID 19 --Blood Cultures:Negative to date --Normal Procalcitonin -- CRP: 0.51 Continue nebs, prednisone, home inhalers Appreciate pulmonology input Weaned off of supplemental oxygen 2 step: did not qualify for oxygen Antitussives as needed Plan to discharge home (2) COVID-19 virus infection: (3) DMII (diabetes mellitus, type 2): HbA1c 7.1 Hold p.o. meds Continue insulin per protocol Monitor BGs Continue gabapentin for neuropathy (4) Hypertension: Hypertensive urgency Likely situational Missed home antihypertensives prior to arrival Continue amlodipine, losartan Steroids also likely contributing to elevated BP BP better GERD Continue PPI DVT Px: Lovenox SQ Code Status Full Code Disposition Home Total Time Total Time Spent Total Time Spent (In Minutes): 56 minutes Discharge Plan Discharge Items Patient Disposition: Home - Self-Care Reason For Visit: sob,asthma exacerbation Discharge Diagnosis: Asthma Exacerbation COVID 19 infection Activity: Per Instructions section Exercise/Sports: Wait until after follow-up appointment Non-emergency contact: Primary Care Provider Call non-emergency contact if: you have any medication questions, your symptoms worsen, your pain is concerning for you and you have a fever Follow-up/Referrals: Parker Rubio MD [Primary Care Provider] - Diet: Carb Consistent or DM2 Addtl Attending Provider Instructions: Follow-up with your primary care physician Dr. Rubio on 06/18/2023 at 3:20 PM --Complete the prednisone tapering course as prescribed Take prednisone 20 mg daily for 2 days, then take 10 mg daily for 2 days and stop Seek immediate medical attention if your symptoms reoccur or worsen Please take all medications as instructed on discharge list below. Please call if you have any questions or problems. You can reach a [facility] hospitalist on duty at [facility] [address] 24 hours a day by calling [phone] Pending Studies at Discharge: Yes Studies:: blood cultures Stand-Alone Forms: My [facility], Smoking Cessation Medications and DC Order Prescriptions: New benzonatate 100 mg Capsule 100 mg PO TID PRN (Reason: cough) Qty: 30 0RF albuterol sulfate 90 mcg/actuation HFA aerosol inhaler 2 inh inhalation Q6H PRN (Reason: shortness of breath or wheezing) Qty: 8.5 0RF prednisone 10 mg tablet 10 mg PO UD Qty: 6 0RF Rx Instructions: Take prednisone 20 mg daily for 2 days, then take 10 mg daily for 2 days and stop Continued multivitamin Tablet 1 tab PO QAM atorvastatin 10 mg tablet 10 mg PO HS amlodipine 5 mg tablet 5 mg PO QAM triamcinolone acetonide 0.1 % cream 1 applic TOPICAL BID PRN (Reason: FLARE) metformin 1,000 mg tablet 1,000 mg PO BID fluticasone propion-salmeterol 500-50 mcg/dose blister with device 1 inh INHALATION BID omeprazole 20 mg capsule,delayed release(DR/EC) 20 mg PO QAM montelukast 10 mg tablet 10 mg PO HS gabapentin 100 mg capsule 100 mg PO TID losartan 100 mg Tablet 100 mg PO QAM fluticasone propionate [Flonase] 50 mcg/actuation [place],Suspension 1 spray INTRANASAL BID PRN (Reason: Congestion) Rx Instructions: administer into each nostril Jardiance 10 mg tablet 10 mg PO QAM Discharge Orders: Discharge Order (Routine); Ordered 06/14/23 Ordered By: Stu Wellington Admission Data Admit Date/Time: 03/09/24 13:06 Attending Provider: Stu Wellington Admit Provider: Jamilah Holley Primary Care Provider: Parker Rubio Other Providers: Jamilah Holley; Simone Zhang
== END 2023-06-14 14:12 | disposition home or self-care (01) | DRG 202 ==
LOC: ED 10:52 → SUATTDRO 13:06 → EDINP 13:06 → 2E 14:34